=== PATIENT | male | born 1950 | race African-American/Black ===

== ENCOUNTER 2017-10-01 09:00 | Inpatient (IN) ==
[2017-10-03 17:00] VITALS: BP 117/74
== END 2017-10-03 18:59 | disposition home or self-care (01) | DRG 847 ==
LOC: N.4E 09:17
PROVIDERS: ADMIT Specialist; ATTEND Specialist

== ENCOUNTER 2019-09-02 10:36 | Inpatient (IN) ==
[2019-09-02 11:37] LABS: Basophils % 0.5 % (0.0-0.8); Hematocrit 43.4 VOL% (42.0-52.0); Hemoglobin 13.7 GM/DL (14.0-18.0); Immature Granulocytes % 0.7 %; Immature Granulocytes Absolute 0.06 #; Lymphocytes # 1.4 10*3/uL (1.4-4.0); Lymphocytes % 16.9 % (21.2-54.2); Mean Corpuscular HGB Conc 31.6 GM/DL (32-36); Mean Corpuscular Volume 94.3 FL (87-102); Mean Platelet Volume 9.5 FL (9.6-12.0); Monocytes % 12.4 % (1.7-12.7); Neutrophils % 69.5 % (38.7-73.9); Platelet Count 175 T/CUMM (130-400); Red Cell Distribution Width 15.5 % (9.3-17.3); White Blood Count 8.1 T/CUMM (4-12)
[2019-09-02 12:05] LABS: Atypical Lymphocytes Few; Band Neutrophils 8 % (0-10); Hypochromasia 1+; Lymphocytes 21 % (20-55); Segmented Neutrophils 64 % (50-85); Total Cells Counted 100
[2019-09-02 12:06] LABS: Microcytosis Slight; Platelet Estimate Adequate
[2019-09-02 12:10] LABS: Alanine Aminotransferase 35 U/L (16-61); Alkaline Phosphatase 69 U/L (45-117); Aspartate Amino Transferase 43 U/L (0-37); Blood Urea Nitrogen 17 MG/DL (7-18); Calcium 8.2 MG/DL (8.5-10.1); Estimated Glom Filtration Rate 108 ML/MIN; Ferritin 604.1 ng/ml (26-388); Glucose 169 MG/DL (74-106); Osmolality,Calculated 262.1 MOS/KG (273-304); Total Protein 7.4 G/DL (6.4-8.3)
[2019-09-02] MEDS ORDERED: SODIUM CHLORIDE 0.9% 1,000 ML IV STA (12:25)
[2019-09-02] MEDS ORDERED: AZITHROMYCIN 250 MG TABLET PO STA (12:46)
[2019-09-02] MEDS ORDERED: cefTRIAXone 1,000 MG in SODIUM CHLORIDE 0.9% 100 ML IV STA (12:46)
[2019-09-02 13:17] LABS: Apearance,Urine CLEAR (Clear); Bilirubin,Urine Negative (Negative); Blood, Urine Large mg/dL (Negative); Glucose,Urine (UA) Negative (Negative); Hyaline Casts,Urine 3 /LPF (0-3); Ketones,Urine Negative (Negative); Mucus,Urine Occasional /LPF (Occasional); Nitrite,Urine Negative (Negative); Protein,Urine >=500 MG/DL; RBC,Urine 3 /HPF (0-4); Sperm,Urine Occasional /HPF (Negative); Squamous Epithelial Cell,Urine Occasional /HPF (0-10); Urine Specific Gravity 1.028 (1.001-1.035); WBC,Urine 8 /HPF (0-6)
[2019-09-02 13:19] LABS: Urine Color Yellow (Yellow)
[2019-09-02] MEDS ORDERED: hydrALAZINE 20 MG/1 ML VIAL ONE (15:04)
[2019-09-02] MEDS ORDERED: DEXTROSE 10% 250 ML BAG IV PRN (15:18)
[2019-09-02] MEDS ORDERED: GLUCAGON 1 MG VIAL IM PRN (15:18)
[2019-09-02] MEDS: INSULIN LISPRO 100 UNIT/ML SUBCUT SCH ×2 (16:46→21:40)
[2019-09-02] MEDS ORDERED: SODIUM CHLORIDE 0.9% 100 ML IV ONE (16:48)
[2019-09-02] MEDS ORDERED: PIPERACILLIN/TAZOBACTAM 3,375 MG VIAL IV ONE (16:48)
[2019-09-02] MEDS: PIPERACILLIN/TAZOBACTAM 3,375 MG in SODIUM CHLORIDE 0.9% 100 ML IV SCH (16:58)
[2019-09-02] MEDS: ALBUTEROL/IPRATROPIUM 3 ML NEB RESP TX SCH (19:44)
[2019-09-03] MEDS: ALBUTEROL/IPRATROPIUM 3 ML NEB RESP TX SCH ×4 (01:26→19:19)
[2019-09-03] MEDS: PIPERACILLIN/TAZOBACTAM 3,375 MG in SODIUM CHLORIDE 0.9% 100 ML IV SCH ×3 (02:44→18:07)
[2019-09-03 05:18] LABS: Basophils % 0.4 % (0.0-0.8); Hematocrit 40.8 VOL% (42.0-52.0); Hemoglobin 12.7 GM/DL (14.0-18.0); Immature Granulocytes % 0.4 %; Immature Granulocytes Absolute 0.04 #; Lymphocytes # 1.4 10*3/uL (1.4-4.0); Lymphocytes % 15.1 % (21.2-54.2); Mean Corpuscular HGB Conc 31.1 GM/DL (32-36); Mean Corpuscular Volume 94.2 FL (87-102); Mean Platelet Volume 10.6 FL (9.6-12.0); Monocytes % 11.4 % (1.7-12.7); Neutrophils % 72.7 % (38.7-73.9); Platelet Count 177 T/CUMM (130-400); Red Blood Count 4.33 MC/CUMM (3.8-5.5); Red Cell Distribution Width 15.8 % (9.3-17.3); White Blood Count 9.3 T/CUMM (4-12)
[2019-09-03 05:45] LABS: Albumin 2.8 G/DL (3.4-5.0); Bilirubin,Total 0.9 MG/DL (0.2-1.0); Calcium 8.1 MG/DL (8.5-10.1); Osmolality,Calculated 266.7 MOS/KG (273-304); Risk Ratio 7.9; Thyroid Stimulating Hormone 0.886 uIU/ml (0.358-3.74); Total Protein 7.4 G/DL (6.4-8.3); VLDL CHOLESTEROL 49.8 MG/DL
[2019-09-03] MEDS: LEVOTHYROXINE 25 MCG TABLET PO SCH (06:08)
[2019-09-03] MEDS: INSULIN LISPRO 100 UNIT/ML SUBCUT SCH ×4 (07:51→20:31)
[2019-09-03] MEDS ORDERED: ATORVASTATIN 40 MG TABLET PO SCH (09:00)
[2019-09-03] MEDS: POTASSIUM CHLORIDE 20 MEQ TABLET PO PRN ×3 (09:52→13:54)
[2019-09-03] MEDS: amLODIPine 10 MG TABLET PO SCH (09:53)
[2019-09-03] MEDS: PANTOPRAZOLE 40 MG TABLET PO SCH (09:53)
[2019-09-03] MEDS: LISINOPRIL/HCTZ 10-12.5 MG TABLET PO SCH (09:53)
[2019-09-03 15:57] LABS: ABG Base Excess 3.8 MMOL/L (-2.5-2.5); ABG HCO3 27.6 MMOL/L (20-26); ABG Oxygen Saturation 86.3 % (95-100); ABG PH 7.316 (7.35-7.45); ABG PO2 54.7 MM HG (80-95); ABG TCO2 28.6 MMOL/L (23-27)
[2019-09-03] MEDS ORDERED: methylPREDNISolone SOD SUC 40 MG/1 ML VIAL IV ONE (16:04)
[2019-09-03] MEDS: ENOXAPARIN 120 MG/0.8 ML SYRINGE SUBCUT SCH (20:31)
[2019-09-03] MEDS: ATORVASTATIN 40 MG TABLET PO SCH (20:31)
[2019-09-04] MEDS: ALBUTEROL/IPRATROPIUM 3 ML NEB RESP TX SCH ×4 (00:55→19:08)
[2019-09-04] MEDS: PIPERACILLIN/TAZOBACTAM 3,375 MG in SODIUM CHLORIDE 0.9% 100 ML IV SCH ×3 (01:15→18:04)
[2019-09-04 04:18] LABS: Basophils % 0.2 % (0.0-0.8); Hemoglobin 12.6 GM/DL (14.0-18.0); Immature Granulocytes % 0.6 %; Immature Granulocytes Absolute 0.06 #; Lymphocytes # 0.9 10*3/uL (1.4-4.0); Lymphocytes % 9.4 % (21.2-54.2); Mean Corpuscular HGB Conc 29.9 GM/DL (32-36); Mean Corpuscular Volume 98.6 FL (87-102); Mean Platelet Volume 11.6 FL (9.6-12.0); Monocytes % 5.7 % (1.7-12.7); Neutrophils % 84.1 % (38.7-73.9); Platelet Count 174 T/CUMM (130-400); Red Blood Count 4.27 MC/CUMM (3.8-5.5); White Blood Count 9.7 T/CUMM (4-12)
[2019-09-04 04:33] LABS: Hematocrit 41.2 VOL% (42.0-52.0)
[2019-09-04 04:35] LABS: Albumin 2.6 G/DL (3.4-5.0); Bilirubin,Total 0.7 MG/DL (0.2-1.0); Calcium 8.6 MG/DL (8.5-10.1); Osmolality,Calculated 273.5 MOS/KG (273-304)
[2019-09-04] MEDS: LEVOTHYROXINE 25 MCG TABLET PO SCH (05:45)
[2019-09-04] MEDS: INSULIN LISPRO 100 UNIT/ML SUBCUT SCH ×4 (09:26→21:14)
[2019-09-04] MEDS: ENOXAPARIN 120 MG/0.8 ML SYRINGE SUBCUT SCH ×2 (09:26→21:15)
[2019-09-04] MEDS: PANTOPRAZOLE 40 MG TABLET PO SCH (09:26)
[2019-09-04] MEDS: LISINOPRIL/HCTZ 10-12.5 MG TABLET PO SCH (09:26)
[2019-09-04] MEDS: amLODIPine 10 MG TABLET PO SCH (09:26)
[2019-09-04] MEDS ORDERED: FUROSEMIDE 40 MG/4 ML VIAL IV ONE (09:58)
[2019-09-04 10:27] LABS: ABG Base Excess 3.1 MMOL/L (-2.5-2.5); ABG HCO3 32.4 MMOL/L (20-26); ABG Oxygen Saturation 96.7 % (95-100); ABG PH 7.254 (7.35-7.45); ABG PO2 93.6 MM HG (80-95); ABG TCO2 34.8 MMOL/L (23-27)
[2019-09-04 15:30] LABS: ABG Base Excess 3.8 MMOL/L (-2.5-2.5); ABG HCO3 27.7 MMOL/L (20-26); ABG Oxygen Saturation 94.2 % (95-100); ABG PCO2 67.1 MM HG (35-48); ABG PH 7.294 (7.35-7.45); ABG PO2 75.9 MM HG (80-95); ABG TCO2 29.2 MMOL/L (23-27)
[2019-09-04 16:54] LABS: Troponin I 0.118 NG/ML (0.00-0.045)
[2019-09-04 17:18] LABS: Folate 21.2 NG/ML (5.4-24.0)
[2019-09-04] MEDS: ATORVASTATIN 40 MG TABLET PO SCH (21:15)
[2019-09-05] MEDS: PIPERACILLIN/TAZOBACTAM 3,375 MG in SODIUM CHLORIDE 0.9% 100 ML IV SCH ×3 (00:10→17:17)
[2019-09-05] MEDS: ALBUTEROL/IPRATROPIUM 3 ML NEB RESP TX SCH ×4 (00:45→19:36)
[2019-09-05] MEDS: ONDANSETRON 4 MG/2 ML VIAL IV PRN (03:05)
[2019-09-05 04:36] LABS: Basophils % 0.3 % (0.0-0.8); Hematocrit 42.1 VOL% (42.0-52.0); Hemoglobin 12.7 GM/DL (14.0-18.0); Immature Granulocytes % 0.7 %; Immature Granulocytes Absolute 0.08 #; Lymphocytes # 1.3 10*3/uL (1.4-4.0); Lymphocytes % 11.4 % (21.2-54.2); Mean Corpuscular HGB Conc 30.2 GM/DL (32-36); Mean Corpuscular Volume 98.6 FL (87-102); Mean Platelet Volume 11.2 FL (9.6-12.0); Monocytes % 7.4 % (1.7-12.7); NRBC # 0.02 10*3/uL; Neutrophils % 80.2 % (38.7-73.9); Platelet Count 192 T/CUMM (130-400); Red Blood Count 4.27 MC/CUMM (3.8-5.5); Red Cell Distribution Width 15.9 % (9.3-17.3); White Blood Count 11.6 T/CUMM (4-12)
[2019-09-05 05:00] LABS: Albumin 2.8 G/DL (3.4-5.0); Bilirubin,Total 0.7 MG/DL (0.2-1.0); Calcium 9.1 MG/DL (8.5-10.1); Osmolality,Calculated 277.2 MOS/KG (273-304); Total Protein 7.9 G/DL (6.4-8.3)
[2019-09-05] MEDS: LEVOTHYROXINE 25 MCG TABLET PO SCH (05:40)
[2019-09-05] MEDS: INSULIN LISPRO 100 UNIT/ML SUBCUT SCH ×4 (09:26→22:02)
[2019-09-05] MEDS: FOLIC ACID 1 MG TABLET PO SCH (09:49)
[2019-09-05] MEDS: MULTIVITAMIN (CENTRUM) TABLET PO SCH (09:49)
[2019-09-05] MEDS: THIAMINE 100 MG TABLET PO SCH (09:49)
[2019-09-05] MEDS: NEBIVOLOL 5 MG TABLET PO SCH (09:49)
[2019-09-05] MEDS: PANTOPRAZOLE 40 MG TABLET PO SCH (09:49)
[2019-09-05] MEDS: amLODIPine 10 MG TABLET PO SCH (09:49)
[2019-09-05] MEDS: ENOXAPARIN 120 MG/0.8 ML SYRINGE SUBCUT SCH ×2 (09:50→22:02)
[2019-09-05] MEDS: POTASSIUM CHLORIDE 20 MEQ TABLET PO SCH ×2 (09:50→12:29)
[2019-09-05] MEDS: ATORVASTATIN 40 MG TABLET PO SCH (22:03)
[2019-09-06] MEDS: PIPERACILLIN/TAZOBACTAM 3,375 MG in SODIUM CHLORIDE 0.9% 100 ML IV SCH (01:07)
[2019-09-06] MEDS: ALBUTEROL/IPRATROPIUM 3 ML NEB RESP TX SCH ×5 (01:18→23:30)
[2019-09-06 03:19] LABS: ABG Base Excess -2.2 MMOL/L (-2.5-2.5); ABG HCO3 22.5 MMOL/L (20-26); ABG Oxygen Saturation 96.3 % (95-100); ABG PCO2 68.8 MM HG (35-48); ABG PH 7.214 (7.35-7.45); ABG PO2 88.1 MM HG (80-95); ABG TCO2 25.1 MMOL/L (23-27)
[2019-09-06 04:52] LABS: Basophils % 0.2 % (0.0-0.8); Hematocrit 41.4 VOL% (42.0-52.0); Hemoglobin 12.7 GM/DL (14.0-18.0); Immature Granulocytes % 0.9 %; Immature Granulocytes Absolute 0.12 #; Lymphocytes # 0.6 10*3/uL (1.4-4.0); Lymphocytes % 4.5 % (21.2-54.2); Mean Corpuscular HGB Conc 30.7 GM/DL (32-36); Mean Corpuscular Volume 97.9 FL (87-102); Mean Platelet Volume 11.3 FL (9.6-12.0); Neutrophils % 88.4 % (38.7-73.9); Platelet Count 245 T/CUMM (130-400); Red Blood Count 4.23 MC/CUMM (3.8-5.5); Red Cell Distribution Width 16.1 % (9.3-17.3); White Blood Count 12.8 T/CUMM (4-12)
[2019-09-06 05:04] LABS: Calcium 9.2 MG/DL (8.5-10.1); Osmolality,Calculated 290.8 MOS/KG (273-304)
[2019-09-06 05:14] LABS: Band Neutrophils 1 % (0-10); Eosinophils 1 % (0-10); Lymphocytes 6 % (20-55); Platelet Estimate Adequate; Segmented Neutrophils 84 % (50-85); Total Cells Counted 100
[2019-09-06] MEDS: LEVOTHYROXINE 25 MCG TABLET PO SCH (06:44)
[2019-09-06] MEDS ORDERED: RIVAROXABAN 15 MG TABLET PO SCH (08:00)
[2019-09-06] MEDS: INSULIN LISPRO 100 UNIT/ML SUBCUT SCH ×4 (09:17→22:10)
[2019-09-06] MEDS: THIAMINE 100 MG TABLET PO SCH (09:25)
[2019-09-06] MEDS: PANTOPRAZOLE 40 MG TABLET PO SCH (09:26)
[2019-09-06] MEDS: amLODIPine 10 MG TABLET PO SCH (09:26)
[2019-09-06] MEDS: FOLIC ACID 1 MG TABLET PO SCH (09:30)
[2019-09-06] MEDS: NEBIVOLOL 5 MG TABLET PO SCH (09:30)
[2019-09-06] MEDS: MULTIVITAMIN (CENTRUM) TABLET PO SCH (09:30)
[2019-09-06] MEDS ORDERED: SODIUM PHOSPHATE ENEMA 133 ML BOTTLE RECTAL ONE (11:48)
[2019-09-06 14:18] LABS: ABG HCO3 21.9 MMOL/L (20-26); ABG Oxygen Saturation 96.9 % (95-100); ABG PO2 97.2 MM HG (80-95); ABG TCO2 25.1 MMOL/L (23-27)
[2019-09-06 14:22] LABS: ABG PH 7.187 (7.35-7.45)
[2019-09-06 14:23] LABS: ABG PCO2 72.4 MM HG (35-48)
[2019-09-06] MEDS ORDERED: BISACODYL 10 MG SUPP RECTAL ONE (15:00)
[2019-09-06 17:03] LABS: ABG Base Excess -3.2 MMOL/L (-2.5-2.5); ABG HCO3 21.6 MMOL/L (20-26); ABG Oxygen Saturation 92.6 % (95-100); ABG TCO2 25.2 MMOL/L (23-27)
[2019-09-06 17:05] LABS: ABG PCO2 74.2 MM HG (35-48); ABG PH 7.177 (7.35-7.45)
[2019-09-06] MEDS ORDERED: SUCCINYLCHOLINE 200 MG/10 ML VIAL IV ONE (17:45)
[2019-09-06] MEDS ORDERED: ETOMIDATE 20 MG/10 ML VIAL IV ONE ×2 (17:45→17:52)
[2019-09-06] MEDS ORDERED: SUCCINYLCHOLINE 200 MG/10 ML VIAL ONE (17:53)
[2019-09-06] MEDS: SODIUM CHLORIDE 0.9% 1,000 ML IV SCH ×2 (18:04)
[2019-09-06] MEDS: methylPREDNISolone SOD SUC 40 MG/1 ML VIAL IV SCH (18:05)
[2019-09-06] MEDS: cefTRIAXone 1,000 MG in SYRINGE 1 EACH IV SCH (18:09)
[2019-09-06] MEDS: AZITHROMYCIN INJ 500 MG in SODIUM CHLORIDE 0.9% 250 ML IV SCH (18:14)
[2019-09-06 18:33] LABS: Amorphous Crystals,Urine Occasional /HPF (Few); Apearance,Urine CLOUDY (Clear); Bilirubin,Urine Negative (Negative); Blood, Urine Moderate mg/dL (Negative); Glucose,Urine (UA) Negative (Negative); Hyaline Casts,Urine 2 /LPF (0-3); Ketones,Urine Negative (Negative); Mucus,Urine Occasional /LPF (Occasional); Nitrite,Urine Negative (Negative); Protein,Urine 100 MG/DL; RBC,Urine 8 /HPF (0-4); Squamous Epithelial Cell,Urine Occasional /HPF (0-10); Urine Color Amber (Yellow); Urine Urobilinogen < 2.0 EU/DL (0.2-1.0); WBC,Urine <1 /HPF (0-6)
[2019-09-06] MEDS ORDERED: NOREPINEPHRINE 4 MG/4 ML VIAL IV ONE (18:34)
[2019-09-06] MEDS ORDERED: NOREPINEPHRINE 16 MG in SODIUM CHLORIDE 0.9% 234 ML IV PRN (18:35)
[2019-09-06 19:47] LABS: Barbiturates Screen,Urine Negative (Negative); Benzodiazepines Screen,Urine Negative (Negative); Cannabinoid Screen,Urine Negative (Negative); Opiate Screen,Urine Negative (Negative); Phencyclidine Screen,Urine Negative (Negative)
[2019-09-06 20:02] LABS: ABG Base Excess -3.3 MMOL/L (-2.5-2.5); ABG HCO3 21.7 MMOL/L (20-26); ABG Oxygen Saturation 99.9 % (95-100); ABG PCO2 27.1 MM HG (35-48); ABG PH 7.459 (7.35-7.45); ABG TCO2 16.9 MMOL/L (23-27)
[2019-09-06] MEDS: MIDAZOLAM 100 MG in SODIUM CHLORIDE 0.9% 80 ML IV PRN (20:17)
[2019-09-06] MEDS: ATORVASTATIN 40 MG TABLET PO SCH (22:10)
[2019-09-07] MEDS: methylPREDNISolone SOD SUC 40 MG/1 ML VIAL IV SCH ×3 (00:19→16:24)
[2019-09-07] MEDS: MIDAZOLAM 100 MG in SODIUM CHLORIDE 0.9% 80 ML IV PRN ×2 (04:07→19:31)
[2019-09-07] MEDS: ALBUTEROL/IPRATROPIUM 3 ML NEB RESP TX SCH ×6 (04:13→23:56)
[2019-09-07 04:32] LABS: ABG Base Excess -4.1 MMOL/L (-2.5-2.5); ABG HCO3 17.2 MMOL/L (20-26); ABG PCO2 23.5 MM HG (35-48); ABG PH 7.483 (7.35-7.45); ABG PO2 237.2 MM HG (80-95); ABG TCO2 17.9 MMOL/L (23-27); Allen Test Positive; Pt O2 Delivery Device Ventilator
[2019-09-07 04:33] LABS: ABG Oxygen Saturation 99.6 % (95-100)
[2019-09-07] MEDS: SODIUM CHLORIDE 0.9% 1,000 ML IV SCH ×3 (04:58→22:20)
[2019-09-07 05:08] LABS: Basophils % 0.2 % (0.0-0.8); Hemoglobin 11.9 GM/DL (14.0-18.0); Immature Granulocytes % 1.3 %; Immature Granulocytes Absolute 0.16 #; Lymphocytes # 0.5 10*3/uL (1.4-4.0); Lymphocytes % 4.4 % (21.2-54.2); Mean Corpuscular HGB Conc 30.5 GM/DL (32-36); Mean Corpuscular Volume 96.1 FL (87-102); Mean Platelet Volume 10.3 FL (9.6-12.0); Monocytes % 2.6 % (1.7-12.7); NRBC # 0.03 10*3/uL; Neutrophils % 91.5 % (38.7-73.9); Platelet Count 321 T/CUMM (130-400); Red Blood Count 4.06 MC/CUMM (3.8-5.5); Red Cell Distribution Width 15.9 % (9.3-17.3); White Blood Count 12.4 T/CUMM (4-12)
[2019-09-07 05:27] LABS: Calcium 8.9 MG/DL (8.5-10.1); Osmolality,Calculated 300.7 MOS/KG (273-304)
[2019-09-07 06:03] LABS: Band Neutrophils 1 % (0-10); Lymphocytes 4 % (20-55); Metamyelocytes 1 %; Platelet Estimate Normal; Segmented Neutrophils 90 % (50-85); Total Cells Counted 100
[2019-09-07 06:05] LABS: Hypochromasia Slight
[2019-09-07] MEDS: LEVOTHYROXINE 25 MCG TABLET PO SCH (06:29)
[2019-09-07] MEDS: BUDESONIDE 0.5 MG/2 ML NEB RESP TX SCH ×2 (06:55→19:31)
[2019-09-07] MEDS: INSULIN LISPRO 100 UNIT/ML SUBCUT SCH (07:46)
[2019-09-07] MEDS: NEBIVOLOL 5 MG TABLET PO SCH (08:59)
[2019-09-07] MEDS: amLODIPine 10 MG TABLET PO SCH (08:59)
[2019-09-07] MEDS: MULTIVITAMIN LIQUID (CENTRUM) 60 ML BOTTLE PO SCH (10:09)
[2019-09-07] MEDS: FOLIC ACID 1 MG TABLET PO SCH (10:09)
[2019-09-07] MEDS: OMEPRAZOLE ODT 20 MG TABLET PO SCH (10:10)
[2019-09-07] MEDS: THIAMINE 100 MG TABLET PO SCH (10:10)
[2019-09-07 11:38] LABS: ABG Base Excess -4.4 MMOL/L (-2.5-2.5); ABG HCO3 20.8 MMOL/L (20-26); ABG Oxygen Saturation 98.8 % (95-100); ABG PCO2 32.1 MM HG (35-48); ABG PH 7.393 (7.35-7.45); ABG TCO2 17.4 MMOL/L (23-27); Pt O2 Delivery Device Ventilator
[2019-09-07] MEDS: INSULIN REGULAR 100 UNIT/ML SUBCUT SCH ×2 (12:29→18:28)
[2019-09-07] MEDS: cefTRIAXone 1,000 MG in SYRINGE 1 EACH IV SCH (16:35)
[2019-09-07] MEDS: AZITHROMYCIN INJ 500 MG in SODIUM CHLORIDE 0.9% 250 ML IV SCH (16:40)
[2019-09-07] MEDS: ATORVASTATIN 40 MG TABLET PO SCH (20:28)
[2019-09-08] MEDS: INSULIN REGULAR 100 UNIT/ML SUBCUT SCH ×4 (00:28→23:37)
[2019-09-08] MEDS: methylPREDNISolone SOD SUC 40 MG/1 ML VIAL IV SCH ×3 (01:22→16:33)
[2019-09-08 03:05] LABS: Allen Test Positive; Pt O2 Delivery Device Ventilator
[2019-09-08 03:08] LABS: ABG Base Excess -3.8 MMOL/L (-2.5-2.5); ABG HCO3 21.3 MMOL/L (20-26); ABG Oxygen Saturation 99.2 % (95-100); ABG PCO2 33.8 MM HG (35-48); ABG PH 7.389 (7.35-7.45); ABG TCO2 18.2 MMOL/L (23-27)
[2019-09-08] MEDS: ALBUTEROL/IPRATROPIUM 3 ML NEB RESP TX SCH ×5 (04:00→20:08)
[2019-09-08 05:15] LABS: Basophils % 0.1 % (0.0-0.8); Hematocrit 36.6 VOL% (42.0-52.0); Hemoglobin 11.5 GM/DL (14.0-18.0); Immature Granulocytes % 0.8 %; Immature Granulocytes Absolute 0.12 #; Lymphocytes # 0.4 10*3/uL (1.4-4.0); Lymphocytes % 2.9 % (21.2-54.2); Mean Corpuscular HGB Conc 31.4 GM/DL (32-36); Mean Corpuscular Volume 94.1 FL (87-102); Mean Platelet Volume 9.9 FL (9.6-12.0); Neutrophils % 92.2 % (38.7-73.9); Platelet Count 342 T/CUMM (130-400); Red Blood Count 3.89 MC/CUMM (3.8-5.5); Red Cell Distribution Width 15.8 % (9.3-17.3); White Blood Count 14.6 T/CUMM (4-12)
[2019-09-08] MEDS: MIDAZOLAM 100 MG in SODIUM CHLORIDE 0.9% 80 ML IV PRN (05:31)
[2019-09-08 05:33] LABS: Albumin 2.4 G/DL (3.4-5.0); Bilirubin,Total 0.9 MG/DL (0.2-1.0); Calcium 8.6 MG/DL (8.5-10.1); Osmolality,Calculated 313.4 MOS/KG (273-304); Total Protein 7.1 G/DL (6.4-8.3)
[2019-09-08] MEDS: LEVOTHYROXINE 25 MCG TABLET PO SCH (05:49)
[2019-09-08 06:58] LABS: Band Neutrophils 5 % (0-10); Hypochromasia 1+; Lymphocytes 2 % (20-55); Microcytosis 1+; Segmented Neutrophils 90 % (50-85); Total Cells Counted 100
[2019-09-08 06:59] LABS: Platelet Estimate Normal
[2019-09-08] MEDS: BUDESONIDE 0.5 MG/2 ML NEB RESP TX SCH ×2 (07:29→20:08)
[2019-09-08] MEDS: OMEPRAZOLE ODT 20 MG TABLET PO SCH (08:17)
[2019-09-08] MEDS: FOLIC ACID 1 MG TABLET PO SCH (08:22)
[2019-09-08] MEDS: THIAMINE 100 MG TABLET PO SCH (08:22)
[2019-09-08] MEDS: MULTIVITAMIN LIQUID (CENTRUM) 60 ML BOTTLE PO SCH (08:23)
[2019-09-08] MEDS: HEPARIN DRIP 25,000 UNITS/500 ML PREMIX IV SCH ×2 (09:30→21:53)
[2019-09-08 10:12] LABS: INR 1.2; PT Patient Result 12.4 SECS (9.8-11.9); Partial Thromboplastin Time 23.5 SECS (23.9-33.8)
[2019-09-08] MEDS: SODIUM CHLORIDE 0.9% 1,000 ML IV SCH ×2 (10:20→12:11)
[2019-09-08] MEDS: cefTRIAXone 1,000 MG in SYRINGE 1 EACH IV SCH (16:29)
[2019-09-08] MEDS: AZITHROMYCIN INJ 500 MG in SODIUM CHLORIDE 0.9% 250 ML IV SCH (16:40)
[2019-09-08 18:15] LABS: INR 1.3; PT Patient Result 13.6 SECS (9.8-11.9)
[2019-09-08 18:20] LABS: Partial Thromboplastin Time 83.1 SECS (23.9-33.8)
[2019-09-08] MEDS: ATORVASTATIN 40 MG TABLET PO SCH (20:57)
[2019-09-09] MEDS: INSULIN REGULAR 100 UNIT/ML SUBCUT SCH ×4 (00:11→18:44)
[2019-09-09] MEDS: methylPREDNISolone SOD SUC 40 MG/1 ML VIAL IV SCH ×3 (00:12→17:20)
[2019-09-09] MEDS: ALBUTEROL/IPRATROPIUM 3 ML NEB RESP TX SCH ×6 (00:52→18:53)
[2019-09-09] MEDS: SODIUM CHLORIDE 0.9% 1,000 ML IV SCH ×2 (02:18→23:28)
[2019-09-09] MEDS: MIDAZOLAM 100 MG in SODIUM CHLORIDE 0.9% 80 ML IV PRN ×2 (03:41→16:39)
[2019-09-09 04:34] LABS: Basophils % 0.1 % (0.0-0.8); Hematocrit 35.8 VOL% (42.0-52.0); Hemoglobin 11.3 GM/DL (14.0-18.0); Immature Granulocytes % 1.8 %; Immature Granulocytes Absolute 0.26 #; Lymphocytes # 0.4 10*3/uL (1.4-4.0); Lymphocytes % 2.7 % (21.2-54.2); Mean Corpuscular HGB Conc 31.6 GM/DL (32-36); Mean Corpuscular Volume 92.5 FL (87-102); Mean Platelet Volume 9.9 FL (9.6-12.0); Monocytes % 5.1 % (1.7-12.7); NRBC # 0.03 10*3/uL; Neutrophils % 90.3 % (38.7-73.9); Platelet Count 330 T/CUMM (130-400); Red Blood Count 3.87 MC/CUMM (3.8-5.5); Red Cell Distribution Width 16.1 % (9.3-17.3); White Blood Count 14.3 T/CUMM (4-12)
[2019-09-09 04:38] LABS: ABG Base Excess -6.8 MMOL/L (-2.5-2.5); ABG HCO3 18.9 MMOL/L (20-26); ABG Oxygen Saturation 97.7 % (95-100); ABG PCO2 35.2 MM HG (35-48); ABG PH 7.328 (7.35-7.45); ABG TCO2 16.7 MMOL/L (23-27)
[2019-09-09 05:05] LABS: Albumin 2.3 G/DL (3.4-5.0); Bilirubin,Total 0.6 MG/DL (0.2-1.0); Calcium 8.7 MG/DL (8.5-10.1); Osmolality,Calculated 324.4 MOS/KG (273-304); Total Protein 6.7 G/DL (6.4-8.3)
[2019-09-09 05:16] LABS: Band Neutrophils 1 % (0-10); Hypochromasia 1+; Lymphocytes 3 % (20-55); Microcytosis 1+; Nucleated Red Blood Cells 1 (0-5); Segmented Neutrophils 89 % (50-85); Total Cells Counted 100
[2019-09-09 05:17] LABS: Platelet Estimate Normal
[2019-09-09] MEDS: LEVOTHYROXINE 25 MCG TABLET PO SCH (06:15)
[2019-09-09] MEDS: BUDESONIDE 0.5 MG/2 ML NEB RESP TX SCH ×2 (07:25→18:53)
[2019-09-09 12:19] LABS: Hepatitis B Core IgM Quant 0.57 Index; Hepatitis B Surface Ag Quant < 0.10 Index; Hepatitis B Surface Ag Result Negative (Negative); Hepatitis C Virus Ab Quant 0.11 Index; Hepatitis C Virus Ab Result Negative (Negative)
[2019-09-09] MEDS: HEPARIN DRIP 25,000 UNITS/500 ML PREMIX IV SCH (13:28)
[2019-09-09] MEDS: THIAMINE 100 MG TABLET PO SCH (13:34)
[2019-09-09] MEDS: MULTIVITAMIN LIQUID (CENTRUM) 60 ML BOTTLE PO SCH (13:35)
[2019-09-09] MEDS: FOLIC ACID 1 MG TABLET PO SCH (13:35)
[2019-09-09] MEDS: OMEPRAZOLE ODT 20 MG TABLET PO SCH (13:35)
[2019-09-09] MEDS: cefTRIAXone 1,000 MG in SYRINGE 1 EACH IV SCH (17:37)
[2019-09-09] MEDS: AZITHROMYCIN INJ 500 MG in SODIUM CHLORIDE 0.9% 250 ML IV SCH (17:45)
[2019-09-09] MEDS: ATORVASTATIN 40 MG TABLET PO SCH (20:54)
[2019-09-09] MEDS: INSULIN GLARGINE 100 UNIT/ML SUBCUT SCH (20:54)
[2019-09-10] MEDS: ALBUTEROL/IPRATROPIUM 3 ML NEB RESP TX SCH ×7 (00:40→23:21)
[2019-09-10] MEDS: INSULIN REGULAR 100 UNIT/ML SUBCUT SCH ×4 (00:48→17:27)
[2019-09-10] MEDS: methylPREDNISolone SOD SUC 40 MG/1 ML VIAL IV SCH ×3 (00:48→17:55)
[2019-09-10] MEDS: HEPARIN DRIP 25,000 UNITS/500 ML PREMIX IV SCH ×3 (02:14→21:27)
[2019-09-10 03:49] LABS: Basophils % 0.2 % (0.0-0.8); Hematocrit 33.8 VOL% (42.0-52.0); Hemoglobin 10.7 GM/DL (14.0-18.0); Immature Granulocytes % 5.3 %; Immature Granulocytes Absolute 0.71 #; Lymphocytes # 0.3 10*3/uL (1.4-4.0); Lymphocytes % 1.9 % (21.2-54.2); Mean Corpuscular HGB Conc 31.7 GM/DL (32-36); Mean Corpuscular Volume 93.4 FL (87-102); Mean Platelet Volume 9.8 FL (9.6-12.0); Monocytes % 6.4 % (1.7-12.7); NRBC # 0.03 10*3/uL; Neutrophils % 86.2 % (38.7-73.9); Platelet Count 236 T/CUMM (130-400); Red Blood Count 3.62 MC/CUMM (3.8-5.5); White Blood Count 13.3 T/CUMM (4-12)
[2019-09-10 04:14] LABS: Alanine Aminotransferase 58 U/L (16-61); Albumin 2.1 G/DL (3.4-5.0); Alkaline Phosphatase 41 U/L (45-117); Aspartate Amino Transferase 43 U/L (0-37); Bilirubin,Total < 0.39 MG/DL (0.2-1.0); Blood Urea Nitrogen 99 MG/DL (7-18); Calcium 8.2 MG/DL (8.5-10.1); Estimated Glom Filtration Rate 10 ML/MIN; Glucose 276 MG/DL (74-106); Osmolality,Calculated 321.3 MOS/KG (273-304); Total Protein 6.1 G/DL (6.4-8.3)
[2019-09-10 04:43] LABS: ABG Base Excess -5.7 MMOL/L (-2.5-2.5); ABG HCO3 19.7 MMOL/L (20-26); ABG Oxygen Saturation 97.4 % (95-100); ABG PCO2 45.2 MM HG (35-48); ABG PH 7.278 (7.35-7.45); Allen Test Positive; Pt O2 Delivery Device Ventilator
[2019-09-10 05:02] LABS: Anisocytosis 1+; Lymphocytes 1 % (20-55); Nucleated Red Blood Cells 1 (0-5); Platelet Estimate Normal; Segmented Neutrophils 94 % (50-85); Total Cells Counted 100
[2019-09-10] MEDS: SODIUM CHLORIDE 0.9% 1,000 ML IV SCH (05:07)
[2019-09-10] MEDS: MIDAZOLAM 100 MG in SODIUM CHLORIDE 0.9% 80 ML IV PRN ×3 (05:11→22:03)
[2019-09-10] MEDS: LEVOTHYROXINE 25 MCG TABLET PO SCH (06:08)
[2019-09-10] MEDS: BUDESONIDE 0.5 MG/2 ML NEB RESP TX SCH ×2 (07:10→19:18)
[2019-09-10] MEDS: THIAMINE 100 MG TABLET PO SCH (08:45)
[2019-09-10] MEDS: FOLIC ACID 1 MG TABLET PO SCH (08:45)
[2019-09-10] MEDS: MULTIVITAMIN LIQUID (CENTRUM) 60 ML BOTTLE PO SCH (08:45)
[2019-09-10] MEDS: OMEPRAZOLE ODT 20 MG TABLET PO SCH (08:45)
[2019-09-10] MEDS ORDERED: HEPARIN 10,000 UNIT/10 ML VIAL IV SCH (16:00)
[2019-09-10] MEDS: cefTRIAXone 1,000 MG in SYRINGE 1 EACH IV SCH (17:55)
[2019-09-10] MEDS: AZITHROMYCIN INJ 500 MG in SODIUM CHLORIDE 0.9% 250 ML IV SCH (18:00)
[2019-09-10] MEDS: INSULIN GLARGINE 100 UNIT/ML SUBCUT SCH (21:28)
[2019-09-11] MEDS: INSULIN REGULAR 100 UNIT/ML SUBCUT SCH ×4 (00:14→17:30)
[2019-09-11] MEDS: methylPREDNISolone SOD SUC 40 MG/1 ML VIAL IV SCH ×3 (00:14→16:10)
[2019-09-11 03:26] LABS: ABG Base Excess -1.6 MMOL/L (-2.5-2.5); ABG HCO3 23.1 MMOL/L (20-26); ABG Oxygen Saturation 97.9 % (95-100); ABG PCO2 36.3 MM HG (35-48); ABG PH 7.404 (7.35-7.45); ABG TCO2 20.2 MMOL/L (23-27)
[2019-09-11 04:06] LABS: Basophils # 0.1 10*3/uL (0.0-0.2); Basophils % 0.3 % (0.0-0.8); Hematocrit 35.6 VOL% (42.0-52.0); Hemoglobin 11.4 GM/DL (14.0-18.0); Immature Granulocytes % 8.2 %; Immature Granulocytes Absolute 1.24 #; Lymphocytes # 0.5 10*3/uL (1.4-4.0); Mean Corpuscular Volume 90.6 FL (87-102); Mean Platelet Volume 9.5 FL (9.6-12.0); Monocytes % 6.7 % (1.7-12.7); NRBC # 0.08 10*3/uL; Neutrophils % 81.8 % (38.7-73.9); Platelet Count 177 T/CUMM (130-400); Red Blood Count 3.93 MC/CUMM (3.8-5.5); Red Cell Distribution Width 15.8 % (9.3-17.3); White Blood Count 15.2 T/CUMM (4-12)
[2019-09-11] MEDS: ALBUTEROL/IPRATROPIUM 3 ML NEB RESP TX SCH ×6 (04:20→23:04)
[2019-09-11 04:35] LABS: Albumin 2.2 G/DL (3.4-5.0); Bilirubin,Total 1.3 MG/DL (0.2-1.0); Calcium 8.5 MG/DL (8.5-10.1); Osmolality,Calculated 307.7 MOS/KG (273-304); Total Protein 6.4 G/DL (6.4-8.3)
[2019-09-11 05:40] LABS: Hypochromasia 1+; Lymphocytes 3 % (20-55); Metamyelocytes 1 %; Myelocytes 1 %; Segmented Neutrophils 87 % (50-85); Total Cells Counted 100
[2019-09-11 05:41] LABS: Microcytosis 1+
[2019-09-11] MEDS: LEVOTHYROXINE 25 MCG TABLET PO SCH (06:05)
[2019-09-11] MEDS: MIDAZOLAM 100 MG in SODIUM CHLORIDE 0.9% 80 ML IV PRN ×2 (06:30→16:30)
[2019-09-11] MEDS: BUDESONIDE 0.5 MG/2 ML NEB RESP TX SCH ×2 (07:50→19:19)
[2019-09-11] MEDS: FOLIC ACID 1 MG TABLET PO SCH (08:15)
[2019-09-11] MEDS: OMEPRAZOLE ODT 20 MG TABLET PO SCH (08:15)
[2019-09-11] MEDS: MULTIVITAMIN LIQUID (CENTRUM) 60 ML BOTTLE PO SCH (08:15)
[2019-09-11] MEDS: THIAMINE 100 MG TABLET PO SCH (08:15)
[2019-09-11] MEDS: HEPARIN DRIP 25,000 UNITS/500 ML PREMIX IV SCH ×2 (09:00→22:00)
[2019-09-11] MEDS: METOCLOPRAMIDE 10 MG/2 ML VIAL IV SCH ×2 (11:40→17:40)
[2019-09-11] MEDS: cefTRIAXone 1,000 MG in SYRINGE 1 EACH IV SCH (16:15)
[2019-09-11] MEDS: INSULIN GLARGINE 100 UNIT/ML SUBCUT SCH (20:10)
[2019-09-12] MEDS: INSULIN REGULAR 100 UNIT/ML SUBCUT SCH ×4 (00:55→18:39)
[2019-09-12] MEDS: methylPREDNISolone SOD SUC 40 MG/1 ML VIAL IV SCH ×3 (00:55→15:53)
[2019-09-12] MEDS: METOCLOPRAMIDE 10 MG/2 ML VIAL IV SCH ×4 (00:55→18:39)
[2019-09-12 02:24] LABS: ABG Base Excess -2.1 MMOL/L (-2.5-2.5); ABG HCO3 22.6 MMOL/L (20-26); ABG Oxygen Saturation 96.8 % (95-100); ABG PCO2 38.1 MM HG (35-48); ABG PH 7.382 (7.35-7.45); ABG PO2 91.2 MM HG (80-95); ABG TCO2 20.3 MMOL/L (23-27); Allen Test Positive; Pt O2 Delivery Device Ventilator
[2019-09-12 04:14] LABS: Basophils % 0.3 % (0.0-0.8); Hemoglobin 10.6 GM/DL (14.0-18.0); Immature Granulocytes % 8.5 %; Immature Granulocytes Absolute 1.21 #; Lymphocytes # 0.4 10*3/uL (1.4-4.0); Lymphocytes % 2.7 % (21.2-54.2); Mean Corpuscular HGB Conc 31.2 GM/DL (32-36); Mean Corpuscular Volume 94.4 FL (87-102); Mean Platelet Volume 10.1 FL (9.6-12.0); Monocytes % 7.4 % (1.7-12.7); NRBC # 0.09 10*3/uL; Neutrophils % 81.1 % (38.7-73.9); Platelet Count 194 T/CUMM (130-400); Red Cell Distribution Width 15.9 % (9.3-17.3); White Blood Count 14.3 T/CUMM (4-12)
[2019-09-12] MEDS: ALBUTEROL/IPRATROPIUM 3 ML NEB RESP TX SCH ×6 (04:19→23:49)
[2019-09-12 04:24] LABS: Calcium 8.1 MG/DL (8.5-10.1); Osmolality,Calculated 318.4 MOS/KG (273-304)
[2019-09-12] MEDS: LEVOTHYROXINE 25 MCG TABLET PO SCH (06:10)
[2019-09-12] MEDS: MIDAZOLAM 100 MG in SODIUM CHLORIDE 0.9% 80 ML IV PRN (06:11)
[2019-09-12 07:38] LABS: Lymphocytes 3 % (20-55); Metamyelocytes 1 %; Platelet Estimate Normal; Segmented Neutrophils 86 % (50-85); Total Cells Counted 100
[2019-09-12] MEDS: BUDESONIDE 0.5 MG/2 ML NEB RESP TX SCH ×2 (07:44→19:00)
[2019-09-12] MEDS: FOLIC ACID 1 MG TABLET PO SCH (08:17)
[2019-09-12] MEDS: OMEPRAZOLE ODT 20 MG TABLET PO SCH (08:17)
[2019-09-12] MEDS: THIAMINE 100 MG TABLET PO SCH (08:18)
[2019-09-12] MEDS: MULTIVITAMIN LIQUID (CENTRUM) 60 ML BOTTLE PO SCH (08:48)
[2019-09-12] MEDS: cefTRIAXone 1,000 MG in SYRINGE 1 EACH IV SCH (15:54)
[2019-09-12] MEDS: INSULIN GLARGINE 100 UNIT/ML SUBCUT SCH (22:25)
[2019-09-12] MEDS: HEPARIN DRIP 25,000 UNITS/500 ML PREMIX IV SCH (22:28)
[2019-09-13] MEDS: METOCLOPRAMIDE 10 MG/2 ML VIAL IV SCH ×4 (00:40→19:00)
[2019-09-13] MEDS: INSULIN REGULAR 100 UNIT/ML SUBCUT SCH ×3 (00:40→12:30)
[2019-09-13] MEDS: methylPREDNISolone SOD SUC 40 MG/1 ML VIAL IV SCH ×3 (00:40→21:15)
[2019-09-13] MEDS: ALBUTEROL/IPRATROPIUM 3 ML NEB RESP TX SCH ×6 (03:03→23:02)
[2019-09-13] MEDS: MIDAZOLAM 100 MG in SODIUM CHLORIDE 0.9% 80 ML IV PRN (04:14)
[2019-09-13 04:24] LABS: Calcium 8.1 MG/DL (8.5-10.1); Osmolality,Calculated 314.5 MOS/KG (273-304)
[2019-09-13 04:42] LABS: ABG HCO3 22.6 MMOL/L (20-26); ABG Oxygen Saturation 96.9 % (95-100); ABG PCO2 38.2 MM HG (35-48); ABG PO2 99.2 MM HG (80-95); ABG TCO2 23.8 MMOL/L (23-27); Allen Test Positive; Pt O2 Delivery Device Ventilator
[2019-09-13] MEDS: LEVOTHYROXINE 25 MCG TABLET PO SCH (05:57)
[2019-09-13] MEDS: BUDESONIDE 0.5 MG/2 ML NEB RESP TX SCH ×2 (07:05→19:28)
[2019-09-13] MEDS: FOLIC ACID 1 MG TABLET PO SCH (08:13)
[2019-09-13] MEDS: THIAMINE 100 MG TABLET PO SCH (08:14)
[2019-09-13] MEDS: MULTIVITAMIN LIQUID (CENTRUM) 60 ML BOTTLE PO SCH (08:14)
[2019-09-13] MEDS: OMEPRAZOLE ODT 20 MG TABLET PO SCH (08:14)
[2019-09-13] MEDS: DEXMEDETOMIDINE 400 MCG in SODIUM CHLORIDE 0.9% 96 ML IV PRN (11:42)
[2019-09-13] MEDS: cefTRIAXone 1,000 MG in SYRINGE 1 EACH IV SCH (15:39)
[2019-09-13] MEDS: INSULIN GLARGINE 100 UNIT/ML SUBCUT SCH (21:15)
[2019-09-13] MEDS: HEPARIN DRIP 25,000 UNITS/500 ML PREMIX IV SCH (21:16)
[2019-09-14] MEDS: INSULIN REGULAR 100 UNIT/ML SUBCUT SCH ×6 (00:05→23:53)
[2019-09-14] MEDS: METOCLOPRAMIDE 10 MG/2 ML VIAL IV SCH ×5 (00:13→23:52)
[2019-09-14] MEDS: HEPARIN DRIP 25,000 UNITS/500 ML PREMIX IV SCH ×2 (00:14→22:24)
[2019-09-14] MEDS: ALBUTEROL/IPRATROPIUM 3 ML NEB RESP TX SCH ×6 (02:59→23:10)
[2019-09-14 04:23] LABS: Basophils % 0.2 % (0.0-0.8); Hematocrit 31.2 VOL% (42.0-52.0); Hemoglobin 9.8 GM/DL (14.0-18.0); Immature Granulocytes % 5.7 %; Immature Granulocytes Absolute 1.02 #; Lymphocytes # 0.5 10*3/uL (1.4-4.0); Lymphocytes % 2.6 % (21.2-54.2); Mean Corpuscular HGB Conc 31.4 GM/DL (32-36); Mean Platelet Volume 11.4 FL (9.6-12.0); Monocytes % 5.8 % (1.7-12.7); NRBC # 0.06 10*3/uL; Neutrophils % 85.7 % (38.7-73.9); Platelet Count 165 T/CUMM (130-400); Red Blood Count 3.25 MC/CUMM (3.8-5.5); Red Cell Distribution Width 16.2 % (9.3-17.3)
[2019-09-14 04:39] LABS: Alanine Aminotransferase 39 U/L (16-61); Albumin 2.2 G/DL (3.4-5.0); Alkaline Phosphatase 42 U/L (45-117); Aspartate Amino Transferase 30 U/L (0-37); Bilirubin,Total < 0.39 MG/DL (0.2-1.0); Blood Urea Nitrogen 129 MG/DL (7-18); Calcium 8.3 MG/DL (8.5-10.1); Estimated Glom Filtration Rate 11 ML/MIN; Glucose 240 MG/DL (74-106); Osmolality,Calculated 328.4 MOS/KG (273-304); Total Protein 5.9 G/DL (6.4-8.3)
[2019-09-14 04:51] LABS: ABG Base Excess -2.6 MMOL/L (-2.5-2.5); ABG HCO3 22.2 MMOL/L (20-26); ABG Oxygen Saturation 96.9 % (95-100); ABG PCO2 40.4 MM HG (35-48); ABG PH 7.357 (7.35-7.45); ABG TCO2 19.9 MMOL/L (23-27); Allen Test Positive; Pt O2 Delivery Device Ventilator
[2019-09-14 05:58] LABS: Anisocytosis 1+; Band Neutrophils 2 % (0-10); Lymphocytes 6 % (20-55); Metamyelocytes 1 %; Myelocytes 1 %; Platelet Estimate Normal; Poikilocytosis Slight; Segmented Neutrophils 82 % (50-85); Total Cells Counted 100
[2019-09-14] MEDS: LEVOTHYROXINE 25 MCG TABLET PO SCH (06:19)
[2019-09-14] MEDS: BUDESONIDE 0.5 MG/2 ML NEB RESP TX SCH ×2 (07:31→19:06)
[2019-09-14] MEDS: methylPREDNISolone SOD SUC 40 MG/1 ML VIAL IV SCH ×2 (08:15→20:39)
[2019-09-14] MEDS: MULTIVITAMIN LIQUID (CENTRUM) 60 ML BOTTLE PO SCH (09:10)
[2019-09-14] MEDS: FOLIC ACID 1 MG TABLET PO SCH (09:14)
[2019-09-14] MEDS: THIAMINE 100 MG TABLET PO SCH (09:15)
[2019-09-14] MEDS: OMEPRAZOLE ODT 20 MG TABLET PO SCH (09:15)
[2019-09-14 12:05] LABS: ABG HCO3 22.7 MMOL/L (20-26); ABG Oxygen Saturation 95.4 % (95-100); ABG PCO2 48.1 MM HG (35-48); ABG PH 7.315 (7.35-7.45); ABG PO2 84.6 MM HG (80-95); ABG TCO2 22.4 MMOL/L (23-27); Allen Test Positive; Pt O2 Delivery Device Ventilator
[2019-09-14] MEDS: INSULIN GLARGINE 100 UNIT/ML SUBCUT SCH (20:39)
[2019-09-15] MEDS: ALBUTEROL/IPRATROPIUM 3 ML NEB RESP TX SCH ×5 (03:07→19:34)
[2019-09-15 03:49] LABS: Basophils # 0.1 10*3/uL (0.0-0.2); Basophils % 0.3 % (0.0-0.8); Hematocrit 27.3 VOL% (42.0-52.0); Hemoglobin 8.8 GM/DL (14.0-18.0); Immature Granulocytes % 5.8 %; Immature Granulocytes Absolute 1.22 #; Lymphocytes # 0.5 10*3/uL (1.4-4.0); Lymphocytes % 2.2 % (21.2-54.2); Mean Corpuscular HGB Conc 32.2 GM/DL (32-36); Mean Corpuscular Volume 94.8 FL (87-102); Monocytes % 5.6 % (1.7-12.7); NRBC # 0.08 10*3/uL; Neutrophils % 86.1 % (38.7-73.9); Platelet Count 190 T/CUMM (130-400); Red Blood Count 2.88 MC/CUMM (3.8-5.5); Red Cell Distribution Width 16.8 % (9.3-17.3); White Blood Count 21.2 T/CUMM (4-12)
[2019-09-15 04:09] LABS: Albumin 2.2 G/DL (3.4-5.0); Bilirubin,Total 0.5 MG/DL (0.2-1.0); Calcium 8.4 MG/DL (8.5-10.1); Osmolality,Calculated 335.3 MOS/KG (273-304)
[2019-09-15 04:19] LABS: Band Neutrophils 1 % (0-10); Hypochromasia 1+; Lymphocytes 3 % (20-55); Myelocytes 1 %; Nucleated Red Blood Cells 2 (0-5); Platelet Estimate Adequate; Segmented Neutrophils 88 % (50-85); Total Cells Counted 100
[2019-09-15 04:24] LABS: ABG Base Excess -2.1 MMOL/L (-2.5-2.5); ABG HCO3 22.7 MMOL/L (20-26); ABG Oxygen Saturation 98.8 % (95-100); ABG PCO2 44.8 MM HG (35-48); ABG PH 7.334 (7.35-7.45); ABG TCO2 22.1 MMOL/L (23-27); Allen Test Positive; Pt O2 Delivery Device Ventilator
[2019-09-15] MEDS: LEVOTHYROXINE 25 MCG TABLET PO SCH (05:42)
[2019-09-15] MEDS: METOCLOPRAMIDE 10 MG/2 ML VIAL IV SCH ×3 (05:42→20:24)
[2019-09-15] MEDS: INSULIN REGULAR 100 UNIT/ML SUBCUT SCH (06:25)
[2019-09-15] MEDS: BUDESONIDE 0.5 MG/2 ML NEB RESP TX SCH ×2 (07:28→19:34)
[2019-09-15] MEDS: MULTIVITAMIN LIQUID (CENTRUM) 60 ML BOTTLE PO SCH (09:45)
[2019-09-15] MEDS: methylPREDNISolone SOD SUC 40 MG/1 ML VIAL IV SCH ×2 (09:45→22:25)
[2019-09-15] MEDS: OMEPRAZOLE ODT 20 MG TABLET PO SCH (09:45)
[2019-09-15] MEDS: FOLIC ACID 1 MG TABLET PO SCH (09:45)
[2019-09-15] MEDS: THIAMINE 100 MG TABLET PO SCH (09:46)
[2019-09-15] MEDS: DEXMEDETOMIDINE 400 MCG in SODIUM CHLORIDE 0.9% 96 ML IV PRN (10:40)
[2019-09-15] MEDS: INSULIN LISPRO 100 UNIT/ML SUBCUT SCH ×2 (13:24→20:24)
[2019-09-15] MEDS: HEPARIN DRIP 25,000 UNITS/500 ML PREMIX IV SCH (19:28)
[2019-09-15] MEDS: INSULIN GLARGINE 100 UNIT/ML SUBCUT SCH (23:05)
[2019-09-16] MEDS: ALBUTEROL/IPRATROPIUM 3 ML NEB RESP TX SCH ×7 (01:28→23:48)
[2019-09-16] MEDS: METOCLOPRAMIDE 10 MG/2 ML VIAL IV SCH ×4 (03:19→18:01)
[2019-09-16] MEDS: INSULIN LISPRO 100 UNIT/ML SUBCUT SCH ×4 (03:30→18:01)
[2019-09-16 04:27] LABS: Basophils % 0.1 % (0.0-0.8); Hematocrit 22.1 VOL% (42.0-52.0); Hemoglobin 6.8 GM/DL (14.0-18.0); Immature Granulocytes % 5.3 %; Immature Granulocytes Absolute 1.19 #; Lymphocytes # 0.6 10*3/uL (1.4-4.0); Lymphocytes % 2.7 % (21.2-54.2); Mean Corpuscular HGB Conc 30.8 GM/DL (32-36); Mean Corpuscular Volume 97.4 FL (87-102); Mean Platelet Volume 11.5 FL (9.6-12.0); Monocytes % 5.1 % (1.7-12.7); NRBC # 0.05 10*3/uL; Neutrophils % 86.8 % (38.7-73.9); Platelet Count 60 T/CUMM (130-400); Red Blood Count 2.27 MC/CUMM (3.8-5.5); Red Cell Distribution Width 16.6 % (9.3-17.3); White Blood Count 22.4 T/CUMM (4-12)
[2019-09-16 04:43] LABS: Alanine Aminotransferase 30 U/L (16-61); Albumin 1.9 G/DL (3.4-5.0); Alkaline Phosphatase 34 U/L (45-117); Aspartate Amino Transferase 23 U/L (0-37); Bilirubin,Total < 0.39 MG/DL (0.2-1.0); Blood Urea Nitrogen 147 MG/DL (7-18); Calcium 8.1 MG/DL (8.5-10.1); Estimated Glom Filtration Rate 14 ML/MIN; Glucose 216 MG/DL (74-106); Osmolality,Calculated 335.3 MOS/KG (273-304); Total Protein 5.2 G/DL (6.4-8.3)
[2019-09-16 04:48] LABS: Band Neutrophils 2 % (0-10); Lymphocytes 5 % (20-55); Segmented Neutrophils 88 % (50-85); Total Cells Counted 100
[2019-09-16 04:49] LABS: Hypochromasia 2+; Platelet Estimate Decreased
[2019-09-16 05:00] LABS: ABG Base Excess -1.2 MMOL/L (-2.5-2.5); ABG Oxygen Saturation 98.1 % (95-100); ABG PCO2 42.5 MM HG (35-48); ABG PH 7.369 (7.35-7.45); ABG PO2 129.8 MM HG (80-95); ABG TCO2 25.3 MMOL/L (23-27); Allen Test Positive; Pt O2 Delivery Device Ventilator
[2019-09-16] MEDS: LEVOTHYROXINE 25 MCG TABLET PO SCH (07:07)
[2019-09-16] MEDS: BUDESONIDE 0.5 MG/2 ML NEB RESP TX SCH ×2 (07:28→19:30)
[2019-09-16] MEDS ORDERED: SODIUM CHLORIDE 0.9% 1,000 ML IV PRN (08:21)
[2019-09-16] MEDS: methylPREDNISolone SOD SUC 40 MG/1 ML VIAL IV SCH ×2 (11:38→21:12)
[2019-09-16] MEDS: FOLIC ACID 1 MG TABLET PO SCH (11:39)
[2019-09-16] MEDS: MULTIVITAMIN LIQUID (CENTRUM) 60 ML BOTTLE PO SCH (11:39)
[2019-09-16] MEDS: THIAMINE 100 MG TABLET PO SCH (11:41)
[2019-09-16] MEDS: OMEPRAZOLE ODT 20 MG TABLET PO SCH (11:41)
[2019-09-16] MEDS: HEPARIN DRIP 25,000 UNITS/500 ML PREMIX IV SCH (14:48)
[2019-09-16] MEDS: INSULIN GLARGINE 100 UNIT/ML SUBCUT SCH (21:16)
[2019-09-17] MEDS: INSULIN LISPRO 100 UNIT/ML SUBCUT SCH ×4 (00:43→18:15)
[2019-09-17] MEDS: ALBUTEROL/IPRATROPIUM 3 ML NEB RESP TX SCH ×6 (03:18→23:44)
[2019-09-17 05:12] LABS: ABG Base Excess -1.3 MMOL/L (-2.5-2.5); ABG HCO3 23.4 MMOL/L (20-26); ABG Oxygen Saturation 97.1 % (95-100); ABG PCO2 35.3 MM HG (35-48); ABG PH 7.419 (7.35-7.45); ABG PO2 85.7 MM HG (80-95); ABG TCO2 21.5 MMOL/L (23-27); Allen Test Positive
[2019-09-17 06:13] LABS: Basophils % 0.2 % (0.0-0.8); Hematocrit 23.6 VOL% (42.0-52.0); Hemoglobin 7.3 GM/DL (14.0-18.0); Immature Granulocytes % 5.1 %; Lymphocytes # 0.5 10*3/uL (1.4-4.0); Lymphocytes % 2.7 % (21.2-54.2); Mean Corpuscular HGB Conc 30.9 GM/DL (32-36); Mean Corpuscular Volume 95.9 FL (87-102); Mean Platelet Volume 11.4 FL (9.6-12.0); NRBC # 0.05 10*3/uL; Platelet Count 83 T/CUMM (130-400); Red Blood Count 2.46 MC/CUMM (3.8-5.5); Red Cell Distribution Width 16.4 % (9.3-17.3); White Blood Count 19.6 T/CUMM (4-12)
[2019-09-17 06:26] LABS: Calcium 8.7 MG/DL (8.5-10.1)
[2019-09-17 06:27] LABS: Osmolality,Calculated 338.1 MOS/KG (273-304)
[2019-09-17 06:42] LABS: Anisocytosis 1+; Hypochromasia 1+; Lymphocytes 2 % (20-55); Metamyelocytes 1 %; Promyelocytes 1 %; Segmented Neutrophils 94 % (50-85); Total Cells Counted 100
[2019-09-17 06:43] LABS: Ovalocytes Slight; Platelet Estimate Decreased; Polychromasia Slight
[2019-09-17] MEDS: LEVOTHYROXINE 25 MCG TABLET PO SCH (06:57)
[2019-09-17] MEDS: BUDESONIDE 0.5 MG/2 ML NEB RESP TX SCH ×2 (07:21→19:02)
[2019-09-17] MEDS: methylPREDNISolone SOD SUC 40 MG/1 ML VIAL IV SCH ×2 (08:15→21:35)
[2019-09-17] MEDS: MULTIVITAMIN LIQUID (CENTRUM) 60 ML BOTTLE PO SCH (08:16)
[2019-09-17] MEDS: THIAMINE 100 MG TABLET PO SCH (08:16)
[2019-09-17] MEDS: OMEPRAZOLE ODT 20 MG TABLET PO SCH (08:16)
[2019-09-17] MEDS: FOLIC ACID 1 MG TABLET PO SCH (08:16)
[2019-09-17] MEDS: ENOXAPARIN 100 MG/ML SYRINGE SUBCUT SCH (09:49)
[2019-09-17] MEDS: INSULIN GLARGINE 100 UNIT/ML SUBCUT SCH (21:36)
[2019-09-18] MEDS: ALBUTEROL/IPRATROPIUM 3 ML NEB RESP TX SCH ×5 (03:01→20:10)
[2019-09-18 04:33] LABS: Basophils % 0.1 % (0.0-0.8); Hematocrit 21.5 VOL% (42.0-52.0); Immature Granulocytes % 4.1 %; Immature Granulocytes Absolute 0.69 #; Lymphocytes # 0.5 10*3/uL (1.4-4.0); Lymphocytes % 2.9 % (21.2-54.2); Mean Corpuscular HGB Conc 32.6 GM/DL (32-36); Mean Corpuscular Volume 94.7 FL (87-102); Mean Platelet Volume 10.4 FL (9.6-12.0); Monocytes % 4.8 % (1.7-12.7); NRBC # 0.07 10*3/uL; Neutrophils % 88.1 % (38.7-73.9); Platelet Count 80 T/CUMM (130-400); Red Blood Count 2.27 MC/CUMM (3.8-5.5); Red Cell Distribution Width 16.5 % (9.3-17.3); White Blood Count 16.8 T/CUMM (4-12)
[2019-09-18 04:55] LABS: Lymphocytes 4 % (20-55); Platelet Estimate Decreased; Segmented Neutrophils 93 % (50-85); Total Cells Counted 100
[2019-09-18 04:56] LABS: Hypochromasia 1+; Microcytosis Slight
[2019-09-18 04:57] LABS: Calcium 8.5 MG/DL (8.5-10.1); Osmolality,Calculated 315.4 MOS/KG (273-304)
[2019-09-18] MEDS: LEVOTHYROXINE 25 MCG TABLET PO SCH (05:34)
[2019-09-18] MEDS: INSULIN LISPRO 100 UNIT/ML SUBCUT SCH ×4 (06:44→19:28)
[2019-09-18] MEDS: BUDESONIDE 0.5 MG/2 ML NEB RESP TX SCH ×2 (07:29→20:10)
[2019-09-18] MEDS: methylPREDNISolone SOD SUC 40 MG/1 ML VIAL IV SCH ×2 (08:08→21:00)
[2019-09-18] MEDS: THIAMINE 100 MG TABLET PO SCH (08:09)
[2019-09-18] MEDS: FOLIC ACID 1 MG TABLET PO SCH (08:09)
[2019-09-18] MEDS: OMEPRAZOLE ODT 20 MG TABLET PO SCH (08:09)
[2019-09-18] MEDS: MULTIVITAMIN LIQUID (CENTRUM) 60 ML BOTTLE PO SCH (08:09)
[2019-09-18] MEDS: ENOXAPARIN 100 MG/ML SYRINGE SUBCUT SCH (08:43)
[2019-09-18] MEDS: INSULIN GLARGINE 100 UNIT/ML SUBCUT SCH (21:00)
[2019-09-18] MEDS: ATORVASTATIN 40 MG TABLET PO SCH (21:00)
[2019-09-19] MEDS: ALBUTEROL/IPRATROPIUM 3 ML NEB RESP TX SCH ×7 (00:05→23:26)
[2019-09-19] MEDS: INSULIN LISPRO 100 UNIT/ML SUBCUT SCH ×4 (01:11→17:21)
[2019-09-19 06:36] LABS: Basophils % 0.1 % (0.0-0.8); Hematocrit 23.8 VOL% (42.0-52.0); Hemoglobin 7.5 GM/DL (14.0-18.0); Immature Granulocytes % 2.9 %; Immature Granulocytes Absolute 0.41 #; Lymphocytes # 0.5 10*3/uL (1.4-4.0); Lymphocytes % 3.4 % (21.2-54.2); Mean Corpuscular HGB Conc 31.5 GM/DL (32-36); Mean Corpuscular Volume 96.7 FL (87-102); Mean Platelet Volume 10.7 FL (9.6-12.0); Monocytes % 5.3 % (1.7-12.7); NRBC # 0.06 10*3/uL; Neutrophils % 88.3 % (38.7-73.9); Red Blood Count 2.46 MC/CUMM (3.8-5.5); Red Cell Distribution Width 16.8 % (9.3-17.3); White Blood Count 14.2 T/CUMM (4-12)
[2019-09-19 06:37] LABS: Platelet Count 99 T/CUMM (130-400)
[2019-09-19 06:57] LABS: Calcium 8.6 MG/DL (8.5-10.1); Osmolality,Calculated 322.8 MOS/KG (273-304)
[2019-09-19] MEDS: LEVOTHYROXINE 25 MCG TABLET PO SCH (07:06)
[2019-09-19 07:16] LABS: Hypochromasia 1+; Lymphocytes 2 % (20-55); Microcytosis Slight; Ovalocytes Slight; Platelet Estimate Decreased; Segmented Neutrophils 90 % (50-85); Total Cells Counted 100
[2019-09-19] MEDS: BUDESONIDE 0.5 MG/2 ML NEB RESP TX SCH ×2 (08:40→19:30)
[2019-09-19] MEDS: methylPREDNISolone SOD SUC 40 MG/1 ML VIAL IV SCH ×2 (13:00→21:36)
[2019-09-19] MEDS: THIAMINE 100 MG TABLET PO SCH (13:00)
[2019-09-19] MEDS: FOLIC ACID 1 MG TABLET PO SCH (13:00)
[2019-09-19] MEDS: OMEPRAZOLE ODT 20 MG TABLET PO SCH (13:00)
[2019-09-19] MEDS: ENOXAPARIN 100 MG/ML SYRINGE SUBCUT SCH (13:00)
[2019-09-19] MEDS: MULTIVITAMIN LIQUID (CENTRUM) 60 ML BOTTLE PO SCH (14:39)
[2019-09-19] MEDS: INSULIN GLARGINE 100 UNIT/ML SUBCUT SCH (21:36)
[2019-09-19] MEDS: ATORVASTATIN 40 MG TABLET PO SCH (21:37)
[2019-09-20] MEDS: INSULIN LISPRO 100 UNIT/ML SUBCUT SCH ×4 (00:30→17:15)
[2019-09-20] MEDS: ALBUTEROL/IPRATROPIUM 3 ML NEB RESP TX SCH ×5 (03:36→20:10)
[2019-09-20] MEDS: LEVOTHYROXINE 25 MCG TABLET PO SCH (06:21)
[2019-09-20 06:49] LABS: Basophils % 0.1 % (0.0-0.8); Hematocrit 24.5 VOL% (42.0-52.0); Hemoglobin 7.4 GM/DL (14.0-18.0); Immature Granulocytes Absolute 0.35 #; Lymphocytes # 0.7 10*3/uL (1.4-4.0); Lymphocytes % 3.7 % (21.2-54.2); Mean Corpuscular HGB Conc 30.2 GM/DL (32-36); Mean Corpuscular Volume 100.8 FL (87-102); Mean Platelet Volume 10.3 FL (9.6-12.0); Monocytes % 5.1 % (1.7-12.7); NRBC # 0.06 10*3/uL; Neutrophils % 89.1 % (38.7-73.9); Platelet Count 107 T/CUMM (130-400); Red Blood Count 2.43 MC/CUMM (3.8-5.5); Red Cell Distribution Width 17.2 % (9.3-17.3); White Blood Count 17.6 T/CUMM (4-12)
[2019-09-20 07:10] LABS: Calcium 8.7 MG/DL (8.5-10.1); Osmolality,Calculated 303.8 MOS/KG (273-304)
[2019-09-20] MEDS: BUDESONIDE 0.5 MG/2 ML NEB RESP TX SCH ×2 (07:10→20:18)
[2019-09-20 07:56] LABS: Lymphocytes 4 % (20-55); Segmented Neutrophils 90 % (50-85); Total Cells Counted 100
[2019-09-20 07:57] LABS: Anisocytosis 1+; Hypochromasia 1+; Polychromasia Slight
[2019-09-20 07:58] LABS: Platelet Estimate Decreased
[2019-09-20] MEDS: ENOXAPARIN 100 MG/ML SYRINGE SUBCUT SCH (08:36)
[2019-09-20] MEDS: MULTIVITAMIN LIQUID (CENTRUM) 60 ML BOTTLE PO SCH (08:36)
[2019-09-20] MEDS: FOLIC ACID 1 MG TABLET PO SCH (08:36)
[2019-09-20] MEDS: THIAMINE 100 MG TABLET PO SCH (08:36)
[2019-09-20] MEDS: methylPREDNISolone SOD SUC 40 MG/1 ML VIAL IV SCH (08:36)
[2019-09-20] MEDS: OMEPRAZOLE ODT 20 MG TABLET PO SCH (08:38)
[2019-09-20] MEDS ORDERED: BENZONATATE 100 MG CAPSULE PO PRN (12:52)
[2019-09-20] MEDS: ATORVASTATIN 40 MG TABLET PO SCH (20:31)
[2019-09-20] MEDS: INSULIN GLARGINE 100 UNIT/ML SUBCUT SCH (20:31)
[2019-09-21] MEDS: INSULIN LISPRO 100 UNIT/ML SUBCUT SCH ×4 (01:42→18:04)
[2019-09-21] MEDS: ALBUTEROL/IPRATROPIUM 3 ML NEB RESP TX SCH ×7 (02:13→23:20)
[2019-09-21] MEDS: LEVOTHYROXINE 25 MCG TABLET PO SCH (06:25)
[2019-09-21] MEDS: BUDESONIDE 0.5 MG/2 ML NEB RESP TX SCH ×2 (07:33→20:00)
[2019-09-21 08:00] LABS: Basophils % 0.1 % (0.0-0.8); Eosinophils # 0.1 10*3/uL (0.0-0.87); Eosinophils % 0.3 % (0.00-10.9); Hematocrit 25.6 VOL% (42.0-52.0); Hemoglobin 7.7 GM/DL (14.0-18.0); Immature Granulocytes Absolute 0.15 #; Lymphocytes # 0.9 10*3/uL (1.4-4.0); Lymphocytes % 6.1 % (21.2-54.2); Mean Corpuscular HGB Conc 30.1 GM/DL (32-36); Mean Corpuscular Volume 102.4 FL (87-102); Mean Platelet Volume 10.3 FL (9.6-12.0); Monocytes % 6.2 % (1.7-12.7); NRBC # 0.05 10*3/uL; Neutrophils % 86.3 % (38.7-73.9); Platelet Count 113 T/CUMM (130-400); Red Cell Distribution Width 17.2 % (9.3-17.3); White Blood Count 14.7 T/CUMM (4-12)
[2019-09-21 08:25] LABS: Calcium 8.9 MG/DL (8.5-10.1); Osmolality,Calculated 305.6 MOS/KG (273-304)
[2019-09-21] MEDS: MULTIVITAMIN LIQUID (CENTRUM) 60 ML BOTTLE PO SCH (08:54)
[2019-09-21] MEDS: ENOXAPARIN 100 MG/ML SYRINGE SUBCUT SCH (08:55)
[2019-09-21] MEDS: FOLIC ACID 1 MG TABLET PO SCH (08:55)
[2019-09-21] MEDS: predniSONE 20 MG TABLET PO SCH (08:55)
[2019-09-21] MEDS: amLODIPine 10 MG TABLET PO SCH (08:55)
[2019-09-21] MEDS: OMEPRAZOLE ODT 20 MG TABLET PO SCH (08:55)
[2019-09-21] MEDS: THIAMINE 100 MG TABLET PO SCH (09:05)
[2019-09-21] MEDS: PHENOL 1.4% THROAT SPRAY 177 ML BOTTLE PO PRN (10:35)
[2019-09-21] MEDS: POTASSIUM CHLORIDE 20 MEQ/15 ML UDCUP PO PRN (18:05)
[2019-09-21] MEDS ORDERED: CHOLESTYRAMINE 4 GM PACK PO SCH (18:30)
[2019-09-21] MEDS: POTASSIUM CHLORIDE RIDER 10 MEQ in PREMIX 1 EACH IV PRN ×4 (18:32→22:54)
[2019-09-21] MEDS: INSULIN GLARGINE 100 UNIT/ML SUBCUT SCH (21:53)
[2019-09-21] MEDS: ATORVASTATIN 40 MG TABLET PO SCH (21:53)
[2019-09-22] MEDS: INSULIN LISPRO 100 UNIT/ML SUBCUT SCH ×4 (00:12→17:56)
[2019-09-22] MEDS: ALBUTEROL/IPRATROPIUM 3 ML NEB RESP TX SCH ×6 (03:04→23:00)
[2019-09-22 03:17] LABS: Eosinophils % 0.2 % (0.00-10.9); Hematocrit 26.8 VOL% (42.0-52.0); Immature Granulocytes % 0.7 %; Lymphocytes % 6.6 % (21.2-54.2); Mean Corpuscular HGB Conc 29.9 GM/DL (32-36); Mean Corpuscular Volume 103.5 FL (87-102); Mean Platelet Volume 9.8 FL (9.6-12.0); Monocytes % 6.2 % (1.7-12.7); NRBC # 0.03 10*3/uL; Neutrophils % 86.3 % (38.7-73.9); Platelet Count 122 T/CUMM (130-400); Red Blood Count 2.59 MC/CUMM (3.8-5.5); Red Cell Distribution Width 17.3 % (9.3-17.3); White Blood Count 14.4 T/CUMM (4-12)
[2019-09-22 03:44] LABS: Calcium 8.8 MG/DL (8.5-10.1)
[2019-09-22] MEDS: LEVOTHYROXINE 25 MCG TABLET PO SCH (06:34)
[2019-09-22] MEDS: BUDESONIDE 0.5 MG/2 ML NEB RESP TX SCH ×2 (07:29→19:23)
[2019-09-22] MEDS: MULTIVITAMIN LIQUID (CENTRUM) 60 ML BOTTLE PO SCH (08:58)
[2019-09-22] MEDS: THIAMINE 100 MG TABLET PO SCH (08:59)
[2019-09-22] MEDS: amLODIPine 10 MG TABLET PO SCH (08:59)
[2019-09-22] MEDS: predniSONE 20 MG TABLET PO SCH (08:59)
[2019-09-22] MEDS: FOLIC ACID 1 MG TABLET PO SCH (08:59)
[2019-09-22] MEDS: ENOXAPARIN 100 MG/ML SYRINGE SUBCUT SCH (09:00)
[2019-09-22] MEDS: OMEPRAZOLE ODT 20 MG TABLET PO SCH (09:01)
[2019-09-22] MEDS: DEXTROSE 5% 1,000 ML IV SCH ×2 (12:57→23:22)
[2019-09-22] MEDS: ATORVASTATIN 40 MG TABLET PO SCH (21:07)
[2019-09-22] MEDS: INSULIN GLARGINE 100 UNIT/ML SUBCUT SCH (21:07)
[2019-09-23] MEDS: INSULIN LISPRO 100 UNIT/ML SUBCUT SCH ×3 (02:04→12:24)
[2019-09-23] MEDS: ALBUTEROL/IPRATROPIUM 3 ML NEB RESP TX SCH ×6 (03:45→23:55)
[2019-09-23 05:55] LABS: Basophils % 0.1 % (0.0-0.8); Eosinophils # 0.1 10*3/uL (0.0-0.87); Eosinophils % 0.5 % (0.00-10.9); Hemoglobin 7.7 GM/DL (14.0-18.0); Immature Granulocytes % 0.7 %; Immature Granulocytes Absolute 0.09 #; Lymphocytes # 1.1 10*3/uL (1.4-4.0); Lymphocytes % 8.5 % (21.2-54.2); Mean Corpuscular HGB Conc 29.6 GM/DL (32-36); Mean Corpuscular Volume 102.8 FL (87-102); Mean Platelet Volume 10.1 FL (9.6-12.0); Monocytes % 6.6 % (1.7-12.7); NRBC # 0.04 10*3/uL; Neutrophils % 83.6 % (38.7-73.9); Platelet Count 129 T/CUMM (130-400); Red Blood Count 2.53 MC/CUMM (3.8-5.5); Red Cell Distribution Width 17.1 % (9.3-17.3); White Blood Count 12.9 T/CUMM (4-12)
[2019-09-23] MEDS: LEVOTHYROXINE 25 MCG TABLET PO SCH (06:27)
[2019-09-23 06:34] LABS: Calcium 8.6 MG/DL (8.5-10.1); Osmolality,Calculated 303.4 MOS/KG (273-304)
[2019-09-23] MEDS: BUDESONIDE 0.5 MG/2 ML NEB RESP TX SCH ×2 (07:50→20:21)
[2019-09-23] MEDS: ENOXAPARIN 100 MG/ML SYRINGE SUBCUT SCH (08:45)
[2019-09-23] MEDS: POTASSIUM CHLORIDE RIDER 10 MEQ in PREMIX 1 EACH IV PRN ×6 (09:09→23:41)
[2019-09-23] MEDS: MULTIVITAMIN LIQUID (CENTRUM) 60 ML BOTTLE PO SCH (09:58)
[2019-09-23] MEDS: amLODIPine 10 MG TABLET PO SCH (09:58)
[2019-09-23] MEDS: OMEPRAZOLE ODT 20 MG TABLET PO SCH (09:58)
[2019-09-23] MEDS: FOLIC ACID 1 MG TABLET PO SCH (09:58)
[2019-09-23] MEDS: predniSONE 10 MG TABLET PO SCH (09:58)
[2019-09-23] MEDS: THIAMINE 100 MG TABLET PO SCH (09:59)
[2019-09-23] MEDS: DEXTROSE 5% 1,000 ML IV SCH ×2 (11:28→22:38)
[2019-09-23] MEDS: FLUCONAZOLE 100 MG TABLET PO SCH (11:29)
[2019-09-23] MEDS: INSULIN GLARGINE 100 UNIT/ML SUBCUT SCH (20:38)
[2019-09-23] MEDS: ACETAMINOPHEN 325 MG TABLET PO PRN (23:43)
[2019-09-23] MEDS: PHENOL 1.4% THROAT SPRAY 177 ML BOTTLE PO PRN (23:45)
[2019-09-24] MEDS: POTASSIUM CHLORIDE RIDER 10 MEQ in PREMIX 1 EACH IV PRN ×4 (00:41→03:42)
[2019-09-24] MEDS: ALBUTEROL/IPRATROPIUM 3 ML NEB RESP TX SCH ×5 (03:39→21:07)
[2019-09-24] MEDS: LEVOTHYROXINE 25 MCG TABLET PO SCH ×2 (05:32→05:55)
[2019-09-24 05:59] LABS: Eosinophils # 0.1 10*3/uL (0.0-0.87); Eosinophils % 1.3 % (0.00-10.9); Hematocrit 24.9 VOL% (42.0-52.0); Hemoglobin 7.5 GM/DL (14.0-18.0); Immature Granulocytes % 0.8 %; Immature Granulocytes Absolute 0.08 #; Lymphocytes # 1.3 10*3/uL (1.4-4.0); Mean Corpuscular HGB Conc 30.1 GM/DL (32-36); Mean Corpuscular Volume 102.5 FL (87-102); Mean Platelet Volume 10.1 FL (9.6-12.0); Monocytes % 7.3 % (1.7-12.7); NRBC # 0.02 10*3/uL; Neutrophils % 78.6 % (38.7-73.9); Platelet Count 126 T/CUMM (130-400); Red Blood Count 2.43 MC/CUMM (3.8-5.5); Red Cell Distribution Width 16.9 % (9.3-17.3); White Blood Count 10.6 T/CUMM (4-12)
[2019-09-24 06:19] LABS: Calcium 8.1 MG/DL (8.5-10.1); Osmolality,Calculated 294.7 MOS/KG (273-304)
[2019-09-24] MEDS: amLODIPine 10 MG TABLET PO SCH (08:51)
[2019-09-24] MEDS: predniSONE 10 MG TABLET PO SCH (08:52)
[2019-09-24] MEDS: ENOXAPARIN 100 MG/ML SYRINGE SUBCUT SCH (08:52)
[2019-09-24] MEDS: THIAMINE 100 MG TABLET PO SCH (08:52)
[2019-09-24] MEDS: POTASSIUM CHLORIDE 20 MEQ TABLET PO SCH (08:52)
[2019-09-24] MEDS: FLUCONAZOLE 100 MG TABLET PO SCH (08:52)
[2019-09-24] MEDS: OMEPRAZOLE ODT 20 MG TABLET PO SCH (08:52)
[2019-09-24] MEDS: MULTIVITAMIN LIQUID (CENTRUM) 60 ML BOTTLE PO SCH (10:59)
[2019-09-24] MEDS: FOLIC ACID 1 MG TABLET PO SCH (10:59)
[2019-09-24] MEDS: BUDESONIDE 0.5 MG/2 ML NEB RESP TX SCH ×2 (11:00→21:07)
[2019-09-24 12:20] LABS: Amorphous Crystals,Urine Few /HPF (Few); Apearance,Urine Slightly Hazy (Clear); Bacteria,Urine Occasional /HPF (Few); Bilirubin,Urine Negative (Negative); Blood, Urine Moderate mg/dL (Negative); Glucose,Urine (UA) Negative (Negative); Ketones,Urine Negative (Negative); Nitrite,Urine Negative (Negative); Protein,Urine 100 MG/DL; RBC,Urine 19 /HPF (0-4); Sperm,Urine Occasional /HPF (Negative); Urine Color Yellow (Yellow); Urine Urobilinogen < 2.0 EU/DL (0.2-1.0); WBC,Urine 7 /HPF (0-6)
[2019-09-24] MEDS: INSULIN GLARGINE 100 UNIT/ML SUBCUT SCH (20:32)
[2019-09-24] MEDS: DEXTROSE 5% 1,000 ML IV SCH (20:32)
[2019-09-25] MEDS: ALBUTEROL/IPRATROPIUM 3 ML NEB RESP TX SCH ×6 (01:17→23:00)
[2019-09-25] MEDS: LEVOTHYROXINE 25 MCG TABLET PO SCH (06:01)
[2019-09-25 06:23] LABS: Basophils % 0.1 % (0.0-0.8); Eosinophils # 0.1 10*3/uL (0.0-0.87); Eosinophils % 1.3 % (0.00-10.9); Hemoglobin 7.7 GM/DL (14.0-18.0); Immature Granulocytes % 0.5 %; Immature Granulocytes Absolute 0.05 #; Lymphocytes # 1.2 10*3/uL (1.4-4.0); Mean Corpuscular HGB Conc 29.6 GM/DL (32-36); Mean Corpuscular Volume 100.4 FL (87-102); Mean Platelet Volume 9.9 FL (9.6-12.0); Monocytes % 6.7 % (1.7-12.7); Neutrophils % 80.4 % (38.7-73.9); Platelet Count 117 T/CUMM (130-400); Red Blood Count 2.59 MC/CUMM (3.8-5.5); Red Cell Distribution Width 16.6 % (9.3-17.3); White Blood Count 10.6 T/CUMM (4-12)
[2019-09-25 06:41] LABS: Calcium 7.9 MG/DL (8.5-10.1); Osmolality,Calculated 288.8 MOS/KG (273-304)
[2019-09-25] MEDS: BUDESONIDE 0.5 MG/2 ML NEB RESP TX SCH ×2 (07:20→19:30)
[2019-09-25] MEDS: FLUCONAZOLE 100 MG TABLET PO SCH (09:21)
[2019-09-25] MEDS: THIAMINE 100 MG TABLET PO SCH (09:21)
[2019-09-25] MEDS: FOLIC ACID 1 MG TABLET PO SCH (09:21)
[2019-09-25] MEDS: POTASSIUM CHLORIDE 20 MEQ TABLET PO SCH (09:21)
[2019-09-25] MEDS: amLODIPine 10 MG TABLET PO SCH (09:21)
[2019-09-25] MEDS: predniSONE 10 MG TABLET PO SCH (09:22)
[2019-09-25] MEDS: OMEPRAZOLE ODT 20 MG TABLET PO SCH (09:22)
[2019-09-25] MEDS: ENOXAPARIN 100 MG/ML SYRINGE SUBCUT SCH (09:22)
[2019-09-25] MEDS: MULTIVITAMIN LIQUID (CENTRUM) 60 ML BOTTLE PO SCH (10:27)
[2019-09-25] MEDS: DEXTROSE 5% 1,000 ML IV SCH (10:28)
[2019-09-25] MEDS: INSULIN GLARGINE 100 UNIT/ML SUBCUT SCH (20:49)
[2019-09-26] MEDS: ALBUTEROL/IPRATROPIUM 3 ML NEB RESP TX SCH ×6 (01:51→19:10)
[2019-09-26] MEDS: LEVOTHYROXINE 25 MCG TABLET PO SCH (05:52)
[2019-09-26] MEDS: DEXTROSE 5% 1,000 ML IV SCH ×2 (05:52→21:00)
[2019-09-26] MEDS: BUDESONIDE 0.5 MG/2 ML NEB RESP TX SCH ×2 (07:40→19:10)
[2019-09-26 08:07] LABS: Basophils % 0.1 % (0.0-0.8); Eosinophils # 0.2 10*3/uL (0.0-0.87); Eosinophils % 2.2 % (0.00-10.9); Hematocrit 24.7 VOL% (42.0-52.0); Hemoglobin 7.4 GM/DL (14.0-18.0); Immature Granulocytes % 0.3 %; Immature Granulocytes Absolute 0.03 #; Lymphocytes # 1.2 10*3/uL (1.4-4.0); Lymphocytes % 13.8 % (21.2-54.2); Mean Corpuscular Volume 100.8 FL (87-102); Monocytes % 6.2 % (1.7-12.7); Neutrophils % 77.4 % (38.7-73.9); Platelet Count 127 T/CUMM (130-400); Red Blood Count 2.45 MC/CUMM (3.8-5.5); Red Cell Distribution Width 16.6 % (9.3-17.3); White Blood Count 8.8 T/CUMM (4-12)
[2019-09-26 08:38] LABS: Calcium 7.8 MG/DL (8.5-10.1); Osmolality,Calculated 286.8 MOS/KG (273-304)
[2019-09-26] MEDS: POTASSIUM CHLORIDE 20 MEQ TABLET PO SCH (08:42)
[2019-09-26] MEDS: predniSONE 10 MG TABLET PO SCH (08:42)
[2019-09-26] MEDS: OMEPRAZOLE ODT 20 MG TABLET PO SCH (08:42)
[2019-09-26] MEDS: THIAMINE 100 MG TABLET PO SCH (08:42)
[2019-09-26] MEDS: amLODIPine 10 MG TABLET PO SCH (08:43)
[2019-09-26] MEDS: ENOXAPARIN 100 MG/ML SYRINGE SUBCUT SCH (08:43)
[2019-09-26] MEDS: FOLIC ACID 1 MG TABLET PO SCH (08:43)
[2019-09-26] MEDS: MULTIVITAMIN LIQUID (CENTRUM) 60 ML BOTTLE PO SCH (08:43)
[2019-09-26] MEDS ORDERED: POTASSIUM CHLORIDE 20 MEQ TABLET PO SCH (09:40)
[2019-09-26] MEDS ORDERED: MAGNESIUM OXIDE 400 MG TABLET PO SCH (10:00)
[2019-09-26] MEDS: CHOLECALCIFEROL 1,000 UNIT TABLET PO SCH (11:09)
[2019-09-26] MEDS: ACETAMINOPHEN 325 MG TABLET PO PRN (15:52)
[2019-09-26] MEDS: INSULIN GLARGINE 100 UNIT/ML SUBCUT SCH (21:01)
[2019-09-27] MEDS: ALBUTEROL/IPRATROPIUM 3 ML NEB RESP TX SCH ×7 (03:05→23:52)
[2019-09-27 03:30] LABS: Basophils % 0.1 % (0.0-0.8); Eosinophils # 0.2 10*3/uL (0.0-0.87); Eosinophils % 1.9 % (0.00-10.9); Hemoglobin 7.5 GM/DL (14.0-18.0); Immature Granulocytes % 0.5 %; Immature Granulocytes Absolute 0.04 #; Lymphocytes # 1.3 10*3/uL (1.4-4.0); Lymphocytes % 16.1 % (21.2-54.2); Mean Corpuscular Volume 100.8 FL (87-102); Monocytes % 6.4 % (1.7-12.7); Platelet Count 134 T/CUMM (130-400); Red Blood Count 2.48 MC/CUMM (3.8-5.5); Red Cell Distribution Width 16.7 % (9.3-17.3)
[2019-09-27 03:56] LABS: Calcium 7.6 MG/DL (8.5-10.1); Osmolality,Calculated 285.8 MOS/KG (273-304)
[2019-09-27 04:01] LABS: % Iron Saturation 16.3 % (18-50); Ferritin 283.1 ng/ml (26-388)
[2019-09-27] MEDS: DEXTROSE 5% 1,000 ML IV SCH ×2 (05:46→18:40)
[2019-09-27] MEDS: LEVOTHYROXINE 25 MCG TABLET PO SCH (05:46)
[2019-09-27] MEDS: BUDESONIDE 0.5 MG/2 ML NEB RESP TX SCH ×2 (07:50→18:58)
[2019-09-27] MEDS ORDERED: MAGNESIUM SULF RIDER 2 GM in PREMIX 1 EACH IV ONE (07:51)
[2019-09-27] MEDS: MULTIVITAMIN LIQUID (CENTRUM) 60 ML BOTTLE PO SCH (10:00)
[2019-09-27] MEDS: POLYETHYLENE GLYCOL POWDER 17 GM PACK PO SCH ×2 (10:00→20:51)
[2019-09-27] MEDS: ENOXAPARIN 100 MG/ML SYRINGE SUBCUT SCH (10:00)
[2019-09-27] MEDS: FERROUS SULFATE 325 MG TABLET PO SCH ×2 (10:02→20:51)
[2019-09-27] MEDS: OMEPRAZOLE ODT 20 MG TABLET PO SCH (10:02)
[2019-09-27] MEDS: MAGNESIUM OXIDE 400 MG TABLET PO SCH ×2 (10:02→20:51)
[2019-09-27] MEDS: FOLIC ACID 1 MG TABLET PO SCH (10:02)
[2019-09-27] MEDS: POTASSIUM CHLORIDE 20 MEQ TABLET PO SCH ×2 (10:02→20:50)
[2019-09-27] MEDS: THIAMINE 100 MG TABLET PO SCH (10:03)
[2019-09-27] MEDS: DOCUSATE SODIUM 100 MG CAPSULE PO SCH ×2 (10:03→20:51)
[2019-09-27] MEDS: predniSONE 10 MG TABLET PO SCH (10:03)
[2019-09-27] MEDS: CHOLECALCIFEROL 1,000 UNIT TABLET PO SCH (10:04)
[2019-09-27] MEDS: amLODIPine 10 MG TABLET PO SCH (10:04)
[2019-09-27] MEDS: POTASSIUM CHLORIDE 20 MEQ/15 ML UDCUP PO PRN (13:32)
[2019-09-27] MEDS: RIVAROXABAN 15 MG TABLET PO SCH (17:23)
[2019-09-27] MEDS: INSULIN GLARGINE 100 UNIT/ML SUBCUT SCH (20:50)
[2019-09-27] MEDS: CALCIUM (CARBONATE) 500 MG TABLET PO SCH (20:54)
[2019-09-28] MEDS: DEXTROSE 5% 1,000 ML IV SCH (02:59)
[2019-09-28] MEDS: ALBUTEROL/IPRATROPIUM 3 ML NEB RESP TX SCH ×6 (03:28→23:09)
[2019-09-28] MEDS: LEVOTHYROXINE 25 MCG TABLET PO SCH (05:34)
[2019-09-28 06:32] LABS: Basophils % 0.1 % (0.0-0.8); Eosinophils # 0.2 10*3/uL (0.0-0.87); Eosinophils % 2.6 % (0.00-10.9); Hemoglobin 7.6 GM/DL (14.0-18.0); Immature Granulocytes % 0.3 %; Immature Granulocytes Absolute 0.02 #; Lymphocytes # 1.2 10*3/uL (1.4-4.0); Lymphocytes % 15.6 % (21.2-54.2); Mean Corpuscular HGB Conc 29.2 GM/DL (32-36); Mean Corpuscular Volume 101.2 FL (87-102); Mean Platelet Volume 10.1 FL (9.6-12.0); Monocytes % 7.3 % (1.7-12.7); Neutrophils % 74.1 % (38.7-73.9); Platelet Count 155 T/CUMM (130-400); Red Blood Count 2.57 MC/CUMM (3.8-5.5); Red Cell Distribution Width 16.4 % (9.3-17.3); White Blood Count 7.8 T/CUMM (4-12)
[2019-09-28 06:34] LABS: Calcium 7.9 MG/DL (8.5-10.1); Osmolality,Calculated 276.4 MOS/KG (273-304)
[2019-09-28] MEDS: BUDESONIDE 0.5 MG/2 ML NEB RESP TX SCH ×2 (07:00→19:01)
[2019-09-28] MEDS ORDERED: MAGNESIUM SULF RIDER 2 GM in PREMIX 1 EACH IV ONE (07:01)
[2019-09-28] MEDS: RIVAROXABAN 15 MG TABLET PO SCH ×2 (08:22→16:17)
[2019-09-28] MEDS: MULTIVITAMIN LIQUID (CENTRUM) 60 ML BOTTLE PO SCH (08:22)
[2019-09-28] MEDS: CHOLECALCIFEROL 1,000 UNIT TABLET PO SCH (08:23)
[2019-09-28] MEDS: CALCIUM (CARBONATE) 500 MG TABLET PO SCH ×2 (08:23→20:24)
[2019-09-28] MEDS: amLODIPine 10 MG TABLET PO SCH (08:23)
[2019-09-28] MEDS: MAGNESIUM OXIDE 400 MG TABLET PO SCH ×4 (08:23→20:24)
[2019-09-28] MEDS: POTASSIUM CHLORIDE 20 MEQ TABLET PO SCH ×2 (08:24→20:24)
[2019-09-28] MEDS: OMEPRAZOLE ODT 20 MG TABLET PO SCH (08:24)
[2019-09-28] MEDS: THIAMINE 100 MG TABLET PO SCH (08:24)
[2019-09-28] MEDS: predniSONE 10 MG TABLET PO SCH (08:24)
[2019-09-28] MEDS: POLYETHYLENE GLYCOL POWDER 17 GM PACK PO SCH ×2 (08:24→20:24)
[2019-09-28] MEDS: FOLIC ACID 1 MG TABLET PO SCH (08:32)
[2019-09-28] MEDS: DOCUSATE SODIUM 100 MG CAPSULE PO SCH ×2 (08:32→20:23)
[2019-09-28] MEDS: FERROUS SULFATE 325 MG TABLET PO SCH ×2 (08:32→20:23)
[2019-09-28] MEDS: ONDANSETRON 4 MG/2 ML VIAL IV PRN (20:22)
[2019-09-28] MEDS: INSULIN GLARGINE 100 UNIT/ML SUBCUT SCH (20:23)
[2019-09-29] MEDS: ALBUTEROL/IPRATROPIUM 3 ML NEB RESP TX SCH ×5 (03:25→20:16)
[2019-09-29 05:48] LABS: Basophils % 0.1 % (0.0-0.8); Eosinophils # 0.2 10*3/uL (0.0-0.87); Eosinophils % 2.4 % (0.00-10.9); Hemoglobin 7.5 GM/DL (14.0-18.0); Immature Granulocytes % 0.3 %; Immature Granulocytes Absolute 0.02 #; Lymphocytes # 0.9 10*3/uL (1.4-4.0); Lymphocytes % 13.5 % (21.2-54.2); Mean Corpuscular Volume 100.4 FL (87-102); Mean Platelet Volume 9.5 FL (9.6-12.0); Monocytes % 6.1 % (1.7-12.7); Neutrophils % 77.6 % (38.7-73.9); Platelet Count 171 T/CUMM (130-400); Red Blood Count 2.49 MC/CUMM (3.8-5.5); Red Cell Distribution Width 16.6 % (9.3-17.3); White Blood Count 6.7 T/CUMM (4-12)
[2019-09-29] MEDS: LEVOTHYROXINE 25 MCG TABLET PO SCH (05:59)
[2019-09-29 06:04] LABS: Calcium 8.4 MG/DL (8.5-10.1); Osmolality,Calculated 280.1 MOS/KG (273-304)
[2019-09-29] MEDS: BUDESONIDE 0.5 MG/2 ML NEB RESP TX SCH ×2 (07:15→20:16)
[2019-09-29] MEDS: MAGNESIUM OXIDE 400 MG TABLET PO SCH ×2 (09:36→22:01)
[2019-09-29] MEDS: CALCIUM (CARBONATE) 500 MG TABLET PO SCH ×2 (09:37→22:01)
[2019-09-29] MEDS: RIVAROXABAN 15 MG TABLET PO SCH ×2 (09:37→17:11)
[2019-09-29] MEDS: OMEPRAZOLE ODT 20 MG TABLET PO SCH (09:37)
[2019-09-29] MEDS: CHOLECALCIFEROL 1,000 UNIT TABLET PO SCH (09:37)
[2019-09-29] MEDS: FOLIC ACID 1 MG TABLET PO SCH (09:37)
[2019-09-29] MEDS: FERROUS SULFATE 325 MG TABLET PO SCH ×2 (09:37→22:01)
[2019-09-29] MEDS: predniSONE 10 MG TABLET PO SCH (09:37)
[2019-09-29] MEDS: THIAMINE 100 MG TABLET PO SCH (09:38)
[2019-09-29] MEDS: POLYETHYLENE GLYCOL POWDER 17 GM PACK PO SCH ×2 (09:38→22:01)
[2019-09-29] MEDS: DOCUSATE SODIUM 100 MG CAPSULE PO SCH ×2 (09:38→22:00)
[2019-09-29] MEDS: amLODIPine 10 MG TABLET PO SCH (09:38)
[2019-09-29] MEDS: MULTIVITAMIN LIQUID (CENTRUM) 60 ML BOTTLE PO SCH (11:30)
[2019-09-29] MEDS: POTASSIUM CHLORIDE 20 MEQ TABLET PO SCH ×2 (11:30→22:01)
[2019-09-29] MEDS: ACETAMINOPHEN 325 MG TABLET PO PRN (15:42)
[2019-09-29] MEDS: INSULIN GLARGINE 100 UNIT/ML SUBCUT SCH (22:01)
[2019-09-30] MEDS: ALBUTEROL/IPRATROPIUM 3 ML NEB RESP TX SCH ×6 (00:26→20:40)
[2019-09-30 04:17] LABS: Basophils % 0.2 % (0.0-0.8); Eosinophils # 0.2 10*3/uL (0.0-0.87); Eosinophils % 4.1 % (0.00-10.9); Hematocrit 24.1 VOL% (42.0-52.0); Hemoglobin 7.4 GM/DL (14.0-18.0); Immature Granulocytes % 0.4 %; Immature Granulocytes Absolute 0.02 #; Lymphocytes # 1.2 10*3/uL (1.4-4.0); Lymphocytes % 22.9 % (21.2-54.2); Mean Corpuscular HGB Conc 30.7 GM/DL (32-36); Mean Corpuscular Volume 99.6 FL (87-102); Mean Platelet Volume 9.8 FL (9.6-12.0); Monocytes % 7.5 % (1.7-12.7); Neutrophils % 64.9 % (38.7-73.9); Platelet Count 190 T/CUMM (130-400); Red Blood Count 2.42 MC/CUMM (3.8-5.5); Red Cell Distribution Width 16.7 % (9.3-17.3); White Blood Count 5.3 T/CUMM (4-12)
[2019-09-30 05:16] LABS: Calcium 8.6 MG/DL (8.5-10.1); Osmolality,Calculated 280.1 MOS/KG (273-304)
[2019-09-30] MEDS: LEVOTHYROXINE 25 MCG TABLET PO SCH (05:39)
[2019-09-30] MEDS: BUDESONIDE 0.5 MG/2 ML NEB RESP TX SCH ×2 (07:25→20:40)
[2019-09-30] MEDS: POLYETHYLENE GLYCOL POWDER 17 GM PACK PO SCH ×2 (09:03→22:07)
[2019-09-30] MEDS: CHOLECALCIFEROL 1,000 UNIT TABLET PO SCH (09:03)
[2019-09-30] MEDS: MAGNESIUM OXIDE 400 MG TABLET PO SCH ×2 (09:03→22:08)
[2019-09-30] MEDS: POTASSIUM CHLORIDE 20 MEQ TABLET PO SCH ×2 (09:03→22:07)
[2019-09-30] MEDS: FOLIC ACID 1 MG TABLET PO SCH (09:03)
[2019-09-30] MEDS: RIVAROXABAN 15 MG TABLET PO SCH ×2 (09:03→16:08)
[2019-09-30] MEDS: amLODIPine 10 MG TABLET PO SCH (09:04)
[2019-09-30] MEDS: OMEPRAZOLE ODT 20 MG TABLET PO SCH (09:04)
[2019-09-30] MEDS: THIAMINE 100 MG TABLET PO SCH (09:04)
[2019-09-30] MEDS: predniSONE 10 MG TABLET PO SCH (09:04)
[2019-09-30] MEDS: CALCIUM (CARBONATE) 500 MG TABLET PO SCH ×2 (09:04→22:07)
[2019-09-30] MEDS: DOCUSATE SODIUM 100 MG CAPSULE PO SCH ×2 (09:04→22:07)
[2019-09-30] MEDS: MULTIVITAMIN LIQUID (CENTRUM) 60 ML BOTTLE PO SCH (09:05)
[2019-09-30] MEDS: FERROUS SULFATE 325 MG TABLET PO SCH ×2 (09:05→22:07)
[2019-09-30] MEDS: ACETAMINOPHEN 325 MG TABLET PO PRN (16:08)
[2019-09-30] MEDS: INSULIN GLARGINE 100 UNIT/ML SUBCUT SCH (22:08)
[2019-10-01] MEDS: ALBUTEROL/IPRATROPIUM 3 ML NEB RESP TX SCH ×5 (00:44→14:03)
[2019-10-01] MEDS: LEVOTHYROXINE 25 MCG TABLET PO SCH (06:37)
[2019-10-01] MEDS: BUDESONIDE 0.5 MG/2 ML NEB RESP TX SCH (07:25)
[2019-10-01] MEDS: POTASSIUM CHLORIDE 20 MEQ TABLET PO SCH (08:33)
[2019-10-01] MEDS: DOCUSATE SODIUM 100 MG CAPSULE PO SCH (08:34)
[2019-10-01] MEDS: FOLIC ACID 1 MG TABLET PO SCH (08:34)
[2019-10-01] MEDS: RIVAROXABAN 15 MG TABLET PO SCH (08:34)
[2019-10-01] MEDS: MAGNESIUM OXIDE 400 MG TABLET PO SCH (08:34)
[2019-10-01] MEDS: OMEPRAZOLE ODT 20 MG TABLET PO SCH (08:34)
[2019-10-01] MEDS: CHOLECALCIFEROL 1,000 UNIT TABLET PO SCH (08:34)
[2019-10-01] MEDS: POLYETHYLENE GLYCOL POWDER 17 GM PACK PO SCH (08:35)
[2019-10-01] MEDS: amLODIPine 10 MG TABLET PO SCH (08:35)
[2019-10-01] MEDS: FERROUS SULFATE 325 MG TABLET PO SCH (08:35)
[2019-10-01] MEDS: THIAMINE 100 MG TABLET PO SCH (08:35)
[2019-10-01] MEDS: CALCIUM (CARBONATE) 500 MG TABLET PO SCH (08:35)
[2019-10-01] MEDS: predniSONE 10 MG TABLET PO SCH (08:35)
[2019-10-01] MEDS ORDERED: OMEGA 3 ACID ETHYL ESTERS 1 GM CAPSULE PO SCH (10:00)
[2019-10-01] MEDS ORDERED: ERGOCALCIFEROL 50,000 UNIT CAPSULE PO ONE (10:01)
[2019-10-01 11:36] LABS: Basophils % 0.3 % (0.0-0.8); Eosinophils # 0.3 10*3/uL (0.0-0.87); Eosinophils % 4.2 % (0.00-10.9); Hematocrit 28.2 VOL% (42.0-52.0); Hemoglobin 8.1 GM/DL (14.0-18.0); Immature Granulocytes % 0.7 %; Immature Granulocytes Absolute 0.04 #; Lymphocytes # 1.1 10*3/uL (1.4-4.0); Lymphocytes % 18.8 % (21.2-54.2); Mean Corpuscular HGB Conc 28.7 GM/DL (32-36); Mean Corpuscular Volume 104.4 FL (87-102); Mean Platelet Volume 8.8 FL (9.6-12.0); Monocytes % 7.4 % (1.7-12.7); Neutrophils % 68.6 % (38.7-73.9); Platelet Count 246 T/CUMM (130-400); Red Cell Distribution Width 16.9 % (9.3-17.3)
[2019-10-01 12:15] VITALS: BP 115/76
[2019-10-01 12:21] LABS: Platelet Estimate Normal
[2019-10-01 12:23] LABS: Hypochromasia Slight
[2019-10-01 12:24] LABS: Anisocytosis 2+; Macrocytosis 1+
[2019-10-01] MEDS: MULTIVITAMIN LIQUID (CENTRUM) 60 ML BOTTLE PO SCH (14:38)
== END 2019-10-01 15:10 | disposition swing bed (61) | DRG 207 ==
LOC: N.ED 10:36 → N.EDINP 15:16 → SUATTDRO 15:16 → N.TELES 18:28 → N.EDINP 18:29 → N.ICU 09-06 17:40 → N.4E 09-18 10:07
PROVIDERS: ADMIT Family Medicine; ATTEND Hospitalist

== ENCOUNTER 2019-12-04 09:59 | Inpatient (IN) ==
[2019-12-04] MEDS ORDERED: ASPIRIN 325 MG TABLET PO STA (10:15)
[2019-12-04 10:29] LABS: Basophils % 0.4 % (0.0-0.8); Eosinophils # 0.2 10*3/uL (0.0-0.87); Eosinophils % 2.1 % (0.00-10.9); Hematocrit 22.9 VOL% (42.0-52.0); Immature Granulocytes % 0.5 %; Immature Granulocytes Absolute 0.04 #; Lymphocytes # 2.4 10*3/uL (1.4-4.0); Lymphocytes % 27.6 % (21.2-54.2); Mean Corpuscular HGB Conc 29.3 GM/DL (32-36); Mean Platelet Volume 8.6 FL (9.6-12.0); Monocytes % 9.2 % (1.7-12.7); Neutrophils % 60.2 % (38.7-73.9); Platelet Count 314 T/CUMM (130-400); Red Blood Count 2.36 MC/CUMM (3.8-5.5); Red Cell Distribution Width 15.3 % (9.3-17.3); White Blood Count 8.6 T/CUMM (4-12)
[2019-12-04 10:36] LABS: Hemoglobin 6.7 GM/DL (14.0-18.0)
[2019-12-04] MEDS ORDERED: PANTOPRAZOLE 40 MG VIAL IV STA (10:50)
[2019-12-04 11:47] LABS: Alanine Aminotransferase 19 U/L (16-61); Albumin 2.9 G/DL (3.4-5.0); Alkaline Phosphatase 71 U/L (45-117); Aspartate Amino Transferase 13 U/L (0-37); Bilirubin,Total < 0.39 MG/DL (0.2-1.0); Blood Urea Nitrogen 15 MG/DL (7-18); Calcium 8.4 MG/DL (8.5-10.1); Estimated Glom Filtration Rate 162 ML/MIN; Glucose 163 MG/DL (74-106); Osmolality,Calculated 287.1 MOS/KG (273-304); Total Protein 6.3 G/DL (6.4-8.3)
[2019-12-04] MEDS ORDERED: DEXTROSE 50% 25 GM/50 ML VIAL IV PRN (12:46)
[2019-12-04] MEDS ORDERED: ACETAMINOPHEN 325 MG TABLET PO PRN (12:46)
[2019-12-04] MEDS ORDERED: GLUCAGON 1 MG VIAL IM PRN (12:46)
[2019-12-04] MEDS ORDERED: ONDANSETRON 4 MG/2 ML VIAL IV PRN (12:46)
[2019-12-04] MEDS ORDERED: SODIUM CHLORIDE 0.9% 1,000 ML IV PRN (13:00)
[2019-12-04 13:24] LABS: % Iron Saturation 5.6 % (18-50); Ferritin 16.3 ng/ml (26-388)
[2019-12-04 13:36] LABS: Folate > 24.0 NG/ML (5.4-24.0); Vitamin B12 314 PG/ML (211-911)
[2019-12-04] MEDS ORDERED: PNEUMOCOCCAL VACCINE (13 VALENT) 0.5 ML SYRINGE IM ONE (15:28)
[2019-12-04] MEDS: PANTOPRAZOLE 40 MG TABLET PO SCH (22:53)
[2019-12-04 22:59] LABS: Apearance,Urine CLEAR (Clear); Bilirubin,Urine Negative (Negative); Blood, Urine Negative (Negative); Glucose,Urine (UA) Negative (Negative); Ketones,Urine Negative (Negative); Mucus,Urine Occasional /LPF (Occasional); Nitrite,Urine Negative (Negative); Protein,Urine Negative; RBC,Urine 2 /HPF (0-4); Urine Color Yellow (Yellow); Urine Specific Gravity 1.012 (1.001-1.035); Urine Urobilinogen < 2.0 EU/DL (0.2-1.0); WBC,Urine 2 /HPF (0-6)
[2019-12-05 05:40] LABS: Basophils # 0.1 10*3/uL (0.0-0.2); Basophils % 0.5 % (0.0-0.8); Eosinophils # 0.2 10*3/uL (0.0-0.87); Eosinophils % 2.2 % (0.00-10.9); Hematocrit 28.1 VOL% (42.0-52.0); Hemoglobin 8.4 GM/DL (14.0-18.0); Immature Granulocytes % 0.3 %; Immature Granulocytes Absolute 0.03 #; Lymphocytes # 2.2 10*3/uL (1.4-4.0); Mean Corpuscular HGB Conc 29.9 GM/DL (32-36); Mean Corpuscular Volume 95.9 FL (87-102); Mean Platelet Volume 9.1 FL (9.6-12.0); Monocytes % 8.7 % (1.7-12.7); Neutrophils % 66.3 % (38.7-73.9); Platelet Count 330 T/CUMM (130-400); Red Blood Count 2.93 MC/CUMM (3.8-5.5); Red Cell Distribution Width 15.1 % (9.3-17.3)
[2019-12-05 07:37] LABS: Bilirubin,Total 0.73 MG/DL (0.2-1.0); Calcium 8.8 MG/DL (8.5-10.1); Total Protein 6.9 G/DL (6.4-8.3)
[2019-12-05 07:38] LABS: Risk Ratio 3.59; VLDL CHOLESTEROL 28.2 MG/DL
[2019-12-05] MEDS ORDERED: propofoL 200 MG/20 ML VIAL IV ONE (09:00)
[2019-12-05] MEDS ORDERED: LIDOCAINE 2% 5 ML VIAL ONE (09:00)
[2019-12-05] MEDS ORDERED: LACTATED RINGERS 1,000 ML IV SCH (10:00)
[2019-12-05] MEDS: PANTOPRAZOLE 40 MG TABLET PO SCH ×2 (14:12→20:36)
[2019-12-05] MEDS: POTASSIUM CHLORIDE 20 MEQ TABLET PO PRN ×3 (14:13→18:22)
[2019-12-06 05:47] LABS: Basophils % 0.4 % (0.0-0.8); Eosinophils # 0.2 10*3/uL (0.0-0.87); Eosinophils % 2.2 % (0.00-10.9); Hemoglobin 8.1 GM/DL (14.0-18.0); Immature Granulocytes % 0.3 %; Immature Granulocytes Absolute 0.03 #; Lymphocytes % 22.3 % (21.2-54.2); Mean Corpuscular Volume 95.7 FL (87-102); Mean Platelet Volume 9.4 FL (9.6-12.0); Monocytes % 10.8 % (1.7-12.7); Platelet Count 308 T/CUMM (130-400); Red Blood Count 2.82 MC/CUMM (3.8-5.5); White Blood Count 9.1 T/CUMM (4-12)
[2019-12-06 06:21] LABS: Alanine Aminotransferase 18 U/L (16-61); Albumin 2.8 G/DL (3.4-5.0); Alkaline Phosphatase 71 U/L (45-117); Aspartate Amino Transferase 13 U/L (0-37); Bilirubin,Total < 0.39 MG/DL (0.2-1.0); Blood Urea Nitrogen 10 MG/DL (7-18); Calcium 8.8 MG/DL (8.5-10.1); Estimated Glom Filtration Rate 154 ML/MIN; Glucose 125 MG/DL (74-106); Total Protein 6.5 G/DL (6.4-8.3)
[2019-12-06] MEDS ORDERED: INFLUENZA VIRUS VACCINE 0.5 ML SYRINGE IM ONE (09:16)
[2019-12-06] MEDS: PANTOPRAZOLE 40 MG TABLET PO SCH (09:43)
[2019-12-06 12:07] VITALS: BP 129/75
== END 2019-12-06 14:33 | disposition home or self-care (01) | DRG 813 ==
LOC: N.ED 09:59 → N.EDINP 12:46 → N.5E 14:48
PROVIDERS: ADMIT Family Medicine; ATTEND Family Medicine

== ENCOUNTER 2019-12-19 10:49 | Inpatient (IN) ==
[2019-12-19 12:08] LABS: Basophils % 0.4 % (0.0-0.8); Eosinophils % 0.4 % (0.00-10.9); Hematocrit 28.6 VOL% (42.0-52.0); Hemoglobin 8.2 GM/DL (14.0-18.0); Immature Granulocytes % 0.6 %; Immature Granulocytes Absolute 0.06 #; Lymphocytes # 1.9 10*3/uL (1.4-4.0); Lymphocytes % 19.8 % (21.2-54.2); Mean Corpuscular HGB Conc 28.7 GM/DL (32-36); Mean Platelet Volume 9.6 FL (9.6-12.0); Monocytes % 15.3 % (1.7-12.7); NRBC # 0.09 10*3/uL; Neutrophils % 63.5 % (38.7-73.9); Red Blood Count 3.11 MC/CUMM (3.8-5.5); Red Cell Distribution Width 16.4 % (9.3-17.3); White Blood Count 9.4 T/CUMM (4-12)
[2019-12-19 12:09] LABS: Platelet Count 560 T/CUMM (130-400)
[2019-12-19 12:17] LABS: INR 1.4; PT Patient Result 14.4 SECS (9.8-11.9); Partial Thromboplastin Time 25.7 SECS (23.9-33.8)
[2019-12-19] MEDS ORDERED: LEVOFLOXACIN INJ 750 MG in PREMIX 1 EACH IV STA (12:17)
[2019-12-19 12:23] LABS: Alanine Aminotransferase 23 U/L (16-61); Albumin 3.2 G/DL (3.4-5.0); Alkaline Phosphatase 92 U/L (45-117); Aspartate Amino Transferase 17 U/L (0-37); Bilirubin,Total < 0.39 MG/DL (0.2-1.0); Blood Urea Nitrogen 10 MG/DL (7-18); Eosinophils 3 % (0-10); Estimated Glom Filtration Rate 151 ML/MIN; Glucose 140 MG/DL (74-106); Hypochromasia 2+; Lymphocytes 15 % (20-55); Macrocytosis 1+; Nucleated Red Blood Cells 1 (0-5); Osmolality,Calculated 277.5 MOS/KG (273-304); Polychromasia 1+; Segmented Neutrophils 69 % (50-85); Total Cells Counted 100; Total Protein 7.9 G/DL (6.4-8.3)
[2019-12-19 12:24] LABS: Microcytosis 1+; Platelet Estimate Increased
[2019-12-19] MEDS ORDERED: DEXAMETHASONE INJ 10 MG in SODIUM CHLORIDE 0.9% 50 ML IV SCH (13:00)
[2019-12-19] MEDS ORDERED: GLUCAGON 1 MG VIAL IM PRN (13:07)
[2019-12-19] MEDS ORDERED: guaiFENesin/DM ER 600-30 MG TABLET PO PRN (13:07)
[2019-12-19] MEDS ORDERED: DEXTROSE 50% 25 GM/50 ML VIAL IV PRN ×2 (13:07→15:30)
[2019-12-19] MEDS ORDERED: DEXTROSE 50% 25 GM/50 ML SYRINGE IV PRN (13:07)
[2019-12-19] MEDS ORDERED: ACETAMINOPHEN 325 MG TABLET PO PRN (13:07)
[2019-12-19] MEDS ORDERED: ONDANSETRON 4 MG/2 ML VIAL IV PRN (13:07)
[2019-12-19] MEDS ORDERED: BISACODYL 5 MG TABLET PO PRN (13:07)
[2019-12-19] MEDS ORDERED: DEXAMETHASONE 4 MG/1 ML VIAL IV STA (13:14)
[2019-12-19] MEDS ORDERED: SODIUM CHLORIDE 0.9% 1,000 ML IV SCH (13:30)
[2019-12-19] MEDS ORDERED: traMADol 50 MG TABLET PO PRN (13:43)
[2019-12-19 14:50] LABS: Ferritin 26.6 ng/ml (26-388)
[2019-12-19 16:11] LABS: ABG Base Excess 5.7 MMOL/L (-2.5-2.5); ABG HCO3 35.5 MMOL/L (20-26); ABG PO2 81.6 MM HG (80-95); ABG TCO2 38.4 MMOL/L (23-27); Allen Test Positive
[2019-12-19 16:17] LABS: ABG PH 7.192 (7.35-7.45)
[2019-12-19 16:18] LABS: ABG PCO2 94.7 MM HG (35-48)
[2019-12-19] MEDS ORDERED: INSULIN LISPRO 100 UNIT/ML SUBCUT SCH (16:30)
[2019-12-19] MEDS ORDERED: FUROSEMIDE 40 MG/4 ML VIAL IV ONE (17:45)
[2019-12-19] MEDS: carvediloL 3.125 MG TABLET PO SCH (18:00)
[2019-12-19 18:18] LABS: ABG Base Excess 5.7 MMOL/L (-2.5-2.5); ABG HCO3 29.2 MMOL/L (20-26); ABG Oxygen Saturation 72.7 % (95-100); ABG PO2 50.5 MM HG (80-95); ABG TCO2 34.4 MMOL/L (23-27); Allen Test Positive; Pt O2 Delivery Device BIPAP
[2019-12-19 18:22] LABS: ABG PCO2 89.7 MM HG (35-48)
[2019-12-19 18:28] LABS: Calcium 8.8 MG/DL (8.5-10.1); Osmolality,Calculated 274.8 MOS/KG (273-304)
[2019-12-19 18:45] LABS: Bacteria,Urine Few /HPF (Few); Bilirubin,Urine Negative (Negative); Blood, Urine Negative (Negative); Glucose,Urine (UA) Negative (Negative); Hyaline Casts,Urine 4 /LPF (0-3); Ketones,Urine Negative (Negative); Mucus,Urine Occasional /LPF (Occasional); Nitrite,Urine Negative (Negative); Protein,Urine 100 MG/DL; RBC,Urine 1 /HPF (0-4); Squamous Epithelial Cell,Urine Occasional /HPF (0-10); Urine Appearance CLEAR (Clear); Urine Color Yellow (Yellow); Urine Specific Gravity 1.015 (1.001-1.035); Urine Urobilinogen < 2.0 EU/DL (0.2-1.0); WBC,Urine 3 /HPF (0-6)
[2019-12-19] MEDS ORDERED: ETOMIDATE 20 MG/10 ML VIAL IV ONE ×2 (19:19→19:20)
[2019-12-19] MEDS ORDERED: MIDAZOLAM 2 MG/2 ML VIAL ONE (19:19)
[2019-12-19] MEDS ORDERED: SUCCINYLCHOLINE 200 MG/10 ML VIAL ONE (19:20)
[2019-12-19] MEDS ORDERED: MIDAZOLAM 2 MG/2 ML VIAL IV ONE (19:20)
[2019-12-19] MEDS ORDERED: SUCCINYLCHOLINE 200 MG/10 ML VIAL IV ONE (19:20)
[2019-12-19] MEDS ORDERED: MIDAZOLAM 100 MG in SODIUM CHLORIDE 0.9% 80 ML IV PRN (20:21)
[2019-12-19] MEDS ORDERED: NOREPINEPHRINE 4 MG/4 ML VIAL IV ONE (20:24)
[2019-12-19] MEDS: NOREPINEPHRINE 8 MG in SODIUM CHLORIDE 0.9% 242 ML IV PRN (20:29)
[2019-12-19 20:49] LABS: Calcium 8.7 MG/DL (8.5-10.1); Osmolality,Calculated 280.5 MOS/KG (273-304)
[2019-12-19] MEDS: ATORVASTATIN 40 MG TABLET PO SCH (22:01)
[2019-12-20] MEDS: INSULIN LISPRO 100 UNIT/ML SUBCUT SCH ×4 (01:03→17:36)
[2019-12-20 04:28] LABS: Hematocrit 26.4 VOL% (42.0-52.0); Hemoglobin 7.6 GM/DL (14.0-18.0); Immature Granulocytes % 0.5 %; Immature Granulocytes Absolute 0.04 #; Lymphocytes # 0.7 10*3/uL (1.4-4.0); Lymphocytes % 8.6 % (21.2-54.2); Mean Corpuscular HGB Conc 28.8 GM/DL (32-36); Mean Platelet Volume 9.3 FL (9.6-12.0); Monocytes % 10.3 % (1.7-12.7); NRBC # 0.11 10*3/uL; Neutrophils % 80.6 % (38.7-73.9); Platelet Count 540 T/CUMM (130-400); Red Blood Count 2.87 MC/CUMM (3.8-5.5); Red Cell Distribution Width 16.2 % (9.3-17.3); White Blood Count 7.9 T/CUMM (4-12)
[2019-12-20] MEDS: NOREPINEPHRINE 8 MG in SODIUM CHLORIDE 0.9% 242 ML IV PRN (04:39)
[2019-12-20 04:43] LABS: ABG Base Excess 6.9 MMOL/L (-2.5-2.5); ABG HCO3 31.6 MMOL/L (20-26); ABG Oxygen Saturation 98.3 % (95-100); ABG PCO2 46.9 MM HG (35-48); ABG PH 7.447 (7.35-7.45); ABG PO2 115.5 MM HG (80-95); ABG TCO2 33.1 MMOL/L (23-27); Allen Test Positive; Pt O2 Delivery Device Ventilator
[2019-12-20 04:47] LABS: Calcium 8.8 MG/DL (8.5-10.1); Osmolality,Calculated 287.8 MOS/KG (273-304)
[2019-12-20 04:48] LABS: % Iron Saturation 4.4 % (18-50)
[2019-12-20 05:53] LABS: Band Neutrophils 2 % (0-10); Lymphocytes 9 % (20-55); Nucleated Red Blood Cells 1 (0-5); Platelet Estimate Increased; Segmented Neutrophils 77 % (50-85); Total Cells Counted 100
[2019-12-20] MEDS: RIVAROXABAN 20 MG TABLET PO SCH (08:54)
[2019-12-20] MEDS: carvediloL 3.125 MG TABLET PO SCH (08:55)
[2019-12-20] MEDS ORDERED: amLODIPine 10 MG TABLET PO SCH (09:00)
[2019-12-20] MEDS ORDERED: NON-FORMULARY MEDICATION (Potassium Gluconate 595 mg (99 mg) Tablet) PO SCH (09:00)
[2019-12-20] MEDS ORDERED: FERROUS GLUCONATE PO SCH (09:00)
[2019-12-20] MEDS ORDERED: [UNRECOGNIZED DRUG - MIXTURE] PO SCH (09:00)
[2019-12-20] MEDS: cefTRIAXone 1,000 MG in SYRINGE 1 EACH IV SCH (10:31)
[2019-12-20] MEDS ORDERED: FUROSEMIDE 40 MG/4 ML VIAL IV ONE (10:43)
[2019-12-20] MEDS: LEVOFLOXACIN INJ 750 MG in PREMIX 1 EACH IV SCH (12:29)
[2019-12-20] MEDS: ALBUTEROL 1.25 MG/3 ML NEB RESP TX SCH ×2 (14:00→19:38)
[2019-12-20 16:06] LABS: Alanine Aminotransferase 26 U/L (16-61); Albumin 2.6 G/DL (3.4-5.0); Alkaline Phosphatase 82 U/L (45-117); Aspartate Amino Transferase 12 U/L (0-37); Bilirubin,Total < 0.39 MG/DL (0.2-1.0); Blood Urea Nitrogen 11 MG/DL (7-18); Calcium 8.5 MG/DL (8.5-10.1); Estimated Glom Filtration Rate 155 ML/MIN; Glucose 103 MG/DL (74-106); Osmolality,Calculated 290.4 MOS/KG (273-304); Total Protein 6.5 G/DL (6.4-8.3)
[2019-12-20] MEDS: DEXMEDETOMIDINE 200 MCG in SODIUM CHLORIDE 0.9% 48 ML IV PRN ×2 (16:21→22:07)
[2019-12-20] MEDS: ATORVASTATIN 40 MG TABLET PO SCH (20:45)
[2019-12-20] MEDS: POTASSIUM CHLORIDE 20 MEQ/15 ML UDCUP PER TUBE PRN ×2 (20:45→22:28)
[2019-12-21] MEDS: INSULIN LISPRO 100 UNIT/ML SUBCUT SCH ×4 (00:53→18:39)
[2019-12-21] MEDS: POTASSIUM CHLORIDE 20 MEQ/15 ML UDCUP PER TUBE PRN ×2 (00:58→03:23)
[2019-12-21] MEDS: ALBUTEROL 1.25 MG/3 ML NEB RESP TX SCH ×4 (01:15→19:29)
[2019-12-21 04:48] LABS: ABG HCO3 33.8 MMOL/L (20-26); ABG PCO2 42.1 MM HG (35-48); ABG PH 7.523 (7.35-7.45); ABG PO2 154.1 MM HG (80-95); ABG TCO2 35.1 MMOL/L (23-27)
[2019-12-21 04:49] LABS: Allen Test Positive; Pt O2 Delivery Device Ventilator
[2019-12-21 04:56] LABS: ABG Oxygen Saturation 99.2 % (95-100)
[2019-12-21 05:12] LABS: Basophils % 0.2 % (0.0-0.8); Eosinophils % 0.3 % (0.00-10.9); Hematocrit 26.1 VOL% (42.0-52.0); Hemoglobin 7.6 GM/DL (14.0-18.0); Immature Granulocytes % 0.6 %; Immature Granulocytes Absolute 0.06 #; Lymphocytes # 1.9 10*3/uL (1.4-4.0); Lymphocytes % 19.9 % (21.2-54.2); Mean Corpuscular HGB Conc 29.1 GM/DL (32-36); Mean Corpuscular Volume 91.9 FL (87-102); Mean Platelet Volume 9.2 FL (9.6-12.0); Monocytes % 12.8 % (1.7-12.7); NRBC # 0.14 10*3/uL; Neutrophils % 66.2 % (38.7-73.9); Platelet Count 476 T/CUMM (130-400); Red Blood Count 2.84 MC/CUMM (3.8-5.5); Red Cell Distribution Width 16.4 % (9.3-17.3); White Blood Count 9.4 T/CUMM (4-12)
[2019-12-21 05:35] LABS: Calcium 8.9 MG/DL (8.5-10.1); Osmolality,Calculated 293.6 MOS/KG (273-304)
[2019-12-21] MEDS: LEVOFLOXACIN INJ 750 MG in PREMIX 1 EACH IV SCH (10:25)
[2019-12-21] MEDS: RIVAROXABAN 20 MG TABLET PO SCH (10:25)
[2019-12-21] MEDS ORDERED: SODIUM CHLORIDE 0.9% 1,000 ML IV PRN (10:39)
[2019-12-21 11:59] LABS: Anisocytosis 4+; Band Neutrophils 1 % (0-10); Hypochromasia 3+; Lymphocytes 20 % (20-55); Metamyelocytes 1 %; Myelocytes 1 %; Ovalocytes Few; Poikilocytosis 3+; Polychromasia Slight; Segmented Neutrophils 69 % (50-85); Total Cells Counted 100
[2019-12-21 12:00] LABS: Platelet Estimate Increased
[2019-12-21] MEDS: cefTRIAXone 1,000 MG in SYRINGE 1 EACH IV SCH (12:11)
[2019-12-21] MEDS: ATORVASTATIN 40 MG TABLET PO SCH (20:30)
[2019-12-22] MEDS: ALBUTEROL 1.25 MG/3 ML NEB RESP TX SCH ×4 (00:29→20:25)
[2019-12-22] MEDS: NOREPINEPHRINE 8 MG in SODIUM CHLORIDE 0.9% 242 ML IV PRN (02:25)
[2019-12-22 04:56] LABS: ABG Base Excess 9.4 MMOL/L (-2.5-2.5); ABG Oxygen Saturation 92.9 % (95-100); ABG PH 7.376 (7.35-7.45); ABG PO2 70.7 MM HG (80-95); ABG TCO2 33.8 MMOL/L (23-27)
[2019-12-22 04:57] LABS: Allen Test Positive
[2019-12-22] MEDS: INSULIN LISPRO 100 UNIT/ML SUBCUT SCH ×4 (05:34→17:48)
[2019-12-22] MEDS: LEVOFLOXACIN INJ 750 MG in PREMIX 1 EACH IV SCH (08:02)
[2019-12-22] MEDS: RIVAROXABAN 20 MG TABLET PO SCH (08:02)
[2019-12-22 09:23] LABS: Calcium 8.9 MG/DL (8.5-10.1); Osmolality,Calculated 294.4 MOS/KG (273-304)
[2019-12-22 09:26] LABS: Basophils % 0.4 % (0.0-0.8); Eosinophils # 0.2 10*3/uL (0.0-0.87); Eosinophils % 1.9 % (0.00-10.9); Hematocrit 30.8 VOL% (42.0-52.0); Hemoglobin 8.6 GM/DL (14.0-18.0); Immature Granulocytes % 0.2 %; Immature Granulocytes Absolute 0.02 #; Lymphocytes # 1.7 10*3/uL (1.4-4.0); Lymphocytes % 18.3 % (21.2-54.2); Mean Corpuscular HGB Conc 27.9 GM/DL (32-36); Mean Corpuscular Volume 92.2 FL (87-102); Mean Platelet Volume 9.4 FL (9.6-12.0); Monocytes % 10.7 % (1.7-12.7); Neutrophils % 68.5 % (38.7-73.9); Platelet Count 483 T/CUMM (130-400); Red Blood Count 3.34 MC/CUMM (3.8-5.5); Red Cell Distribution Width 17.2 % (9.3-17.3); White Blood Count 9.3 T/CUMM (4-12)
[2019-12-22 09:55] LABS: Hypochromasia 1+; Microcytosis 1+; Platelet Estimate Adequate
[2019-12-22] MEDS: cefTRIAXone 1,000 MG in SYRINGE 1 EACH IV SCH (10:18)
[2019-12-22] MEDS: ATORVASTATIN 40 MG TABLET PO SCH (21:58)
[2019-12-23] MEDS: ALBUTEROL 1.25 MG/3 ML NEB RESP TX SCH ×4 (00:51→20:36)
[2019-12-23] MEDS: INSULIN LISPRO 100 UNIT/ML SUBCUT SCH ×4 (01:35→18:51)
[2019-12-23 03:53] LABS: ABG Base Excess 8.2 MMOL/L (-2.5-2.5); ABG HCO3 33.4 MMOL/L (20-26); ABG Oxygen Saturation 83.4 % (95-100); ABG PCO2 50.7 MM HG (35-48); ABG PH 7.437 (7.35-7.45); ABG PO2 50.1 MM HG (80-95); Allen Test Positive; Pt O2 Delivery Device BIPAP
[2019-12-23 06:17] LABS: Basophils % 0.3 % (0.0-0.8); Eosinophils # 0.2 10*3/uL (0.0-0.87); Eosinophils % 2.6 % (0.00-10.9); Hematocrit 30.2 VOL% (42.0-52.0); Hemoglobin 8.9 GM/DL (14.0-18.0); Immature Granulocytes % 0.3 %; Immature Granulocytes Absolute 0.03 #; Lymphocytes # 1.7 10*3/uL (1.4-4.0); Lymphocytes % 18.3 % (21.2-54.2); Mean Corpuscular HGB Conc 29.5 GM/DL (32-36); Mean Corpuscular Volume 90.7 FL (87-102); Mean Platelet Volume 9.2 FL (9.6-12.0); NRBC # 0.02 10*3/uL; Neutrophils % 66.5 % (38.7-73.9); Platelet Count 455 T/CUMM (130-400); Red Blood Count 3.33 MC/CUMM (3.8-5.5); Red Cell Distribution Width 16.9 % (9.3-17.3); White Blood Count 9.4 T/CUMM (4-12)
[2019-12-23 06:24] LABS: Hypochromasia 2+; Microcytosis 1+; Ovalocytes Slight; Platelet Estimate Adequate
[2019-12-23] MEDS: LEVOFLOXACIN INJ 750 MG in PREMIX 1 EACH IV SCH (09:05)
[2019-12-23] MEDS: FUROSEMIDE 40 MG TABLET PO SCH (09:05)
[2019-12-23] MEDS: cefTRIAXone 1,000 MG in SYRINGE 1 EACH IV SCH (10:51)
[2019-12-23] MEDS: RIVAROXABAN 20 MG TABLET PO SCH (12:08)
[2019-12-23] MEDS: ATORVASTATIN 40 MG TABLET PO SCH (22:43)
[2019-12-24] MEDS: ALBUTEROL 1.25 MG/3 ML NEB RESP TX SCH ×4 (01:21→20:10)
[2019-12-24] MEDS: INSULIN LISPRO 100 UNIT/ML SUBCUT SCH ×4 (01:45→18:23)
[2019-12-24 06:41] LABS: Calcium 8.9 MG/DL (8.5-10.1); Osmolality,Calculated 282.1 MOS/KG (273-304)
[2019-12-24 07:27] LABS: Basophils % 0.4 % (0.0-0.8); Eosinophils # 0.3 10*3/uL (0.0-0.87); Eosinophils % 3.8 % (0.00-10.9); Hematocrit 30.8 VOL% (42.0-52.0); Immature Granulocytes % 0.6 %; Immature Granulocytes Absolute 0.05 #; Lymphocytes # 1.5 10*3/uL (1.4-4.0); Mean Corpuscular HGB Conc 29.2 GM/DL (32-36); Mean Corpuscular Volume 90.6 FL (87-102); Mean Platelet Volume 9.4 FL (9.6-12.0); Monocytes % 13.3 % (1.7-12.7); Neutrophils % 63.9 % (38.7-73.9); Platelet Count 425 T/CUMM (130-400); Red Cell Distribution Width 16.4 % (9.3-17.3); White Blood Count 8.4 T/CUMM (4-12)
[2019-12-24 07:29] LABS: Hypochromasia 1+; Microcytosis 1+; Ovalocytes Slight; Platelet Estimate Adequate
[2019-12-24] MEDS: LEVOFLOXACIN INJ 750 MG in PREMIX 1 EACH IV SCH (08:20)
[2019-12-24] MEDS: FUROSEMIDE 40 MG TABLET PO SCH (08:21)
[2019-12-24] MEDS: THEOPHYLLINE ER (24 HR) 400 MG CAPSULE PO SCH (08:21)
[2019-12-24] MEDS: POTASSIUM CHLORIDE 20 MEQ TABLET PO PRN ×3 (11:09→16:54)
[2019-12-24] MEDS: DOCUSATE SODIUM 100 MG CAPSULE PO SCH ×2 (11:09→21:15)
[2019-12-24] MEDS: cefTRIAXone 1,000 MG in SYRINGE 1 EACH IV SCH (11:10)
[2019-12-24] MEDS: POLYETHYLENE GLYCOL POWDER 17 GM PACK PO SCH (14:15)
[2019-12-24] MEDS: ATORVASTATIN 40 MG TABLET PO SCH (21:15)
[2019-12-25] MEDS: INSULIN LISPRO 100 UNIT/ML SUBCUT SCH ×4 (00:15→17:37)
[2019-12-25] MEDS: ALBUTEROL 1.25 MG/3 ML NEB RESP TX SCH ×4 (01:46→19:24)
[2019-12-25 06:13] LABS: Calcium 8.8 MG/DL (8.5-10.1); Osmolality,Calculated 282.1 MOS/KG (273-304)
[2019-12-25 08:30] LABS: Hematocrit 29.5 VOL% (42.0-52.0); Hemoglobin 8.5 GM/DL (14.0-18.0)
[2019-12-25] MEDS: THEOPHYLLINE ER (24 HR) 400 MG CAPSULE PO SCH (09:24)
[2019-12-25] MEDS: FUROSEMIDE 40 MG TABLET PO SCH (09:25)
[2019-12-25] MEDS: DOCUSATE SODIUM 100 MG CAPSULE PO SCH ×2 (09:25→21:22)
[2019-12-25] MEDS: carvediloL 3.125 MG TABLET PO SCH ×2 (09:25→17:35)
[2019-12-25] MEDS: POLYETHYLENE GLYCOL POWDER 17 GM PACK PO SCH (09:26)
[2019-12-25] MEDS: LEVOFLOXACIN INJ 750 MG in PREMIX 1 EACH IV SCH (09:26)
[2019-12-25] MEDS: cefTRIAXone 1,000 MG in SYRINGE 1 EACH IV SCH (10:38)
[2019-12-25] MEDS ORDERED: BISACODYL 5 MG TABLET PO ONE (14:00)
[2019-12-25] MEDS ORDERED: POLYETHYLENE GLYCOL POWDER 255 GM BOTTLE PO ONE (15:00)
[2019-12-25] MEDS: ATORVASTATIN 40 MG TABLET PO SCH (21:22)
[2019-12-26] MEDS: ALBUTEROL 1.25 MG/3 ML NEB RESP TX SCH ×4 (00:55→19:53)
[2019-12-26] MEDS: INSULIN LISPRO 100 UNIT/ML SUBCUT SCH ×4 (00:57→21:09)
[2019-12-26 05:47] LABS: INR 1.2; PT Patient Result 12.9 SECS (9.8-11.9)
[2019-12-26 06:00] LABS: Osmolality,Calculated 278.3 MOS/KG (273-304)
[2019-12-26] MEDS ORDERED: MAGNESIUM CITRATE 300 ML BOTTLE PO ONE (06:00)
[2019-12-26 07:42] LABS: Basophils # 0.1 10*3/uL (0.0-0.2); Basophils % 0.7 % (0.0-0.8); Eosinophils # 0.2 10*3/uL (0.0-0.87); Eosinophils % 2.5 % (0.00-10.9); Hematocrit 30.5 VOL% (42.0-52.0); Hemoglobin 8.8 GM/DL (14.0-18.0); Immature Granulocytes % 0.2 %; Immature Granulocytes Absolute 0.02 #; Lymphocytes # 1.7 10*3/uL (1.4-4.0); Lymphocytes % 18.3 % (21.2-54.2); Mean Corpuscular HGB Conc 28.9 GM/DL (32-36); Mean Corpuscular Volume 89.4 FL (87-102); Mean Platelet Volume 9.4 FL (9.6-12.0); Monocytes % 14.6 % (1.7-12.7); Neutrophils % 63.7 % (38.7-73.9); Platelet Count 402 T/CUMM (130-400); Red Blood Count 3.41 MC/CUMM (3.8-5.5); Red Cell Distribution Width 16.3 % (9.3-17.3); White Blood Count 9.1 T/CUMM (4-12)
[2019-12-26 07:44] LABS: Hypochromasia 1+; Microcytosis 1+; Ovalocytes Slight; Platelet Estimate Increased; Spherocytes Slight
[2019-12-26] MEDS ORDERED: LIDOCAINE 2% 5 ML VIAL ONE (09:00)
[2019-12-26] MEDS ORDERED: ETOMIDATE 20 MG/10 ML VIAL IV ONE (09:00)
[2019-12-26] MEDS ORDERED: propofoL 200 MG/20 ML VIAL IV ONE (09:00)
[2019-12-26] MEDS: LEVOFLOXACIN INJ 750 MG in PREMIX 1 EACH IV SCH (09:40)
[2019-12-26] MEDS: LACTATED RINGERS 1,000 ML IV SCH (12:53)
[2019-12-26] MEDS: carvediloL 3.125 MG TABLET PO SCH ×3 (16:45→17:00)
[2019-12-26] MEDS: THEOPHYLLINE ER (24 HR) 400 MG CAPSULE PO SCH (16:45)
[2019-12-26] MEDS: FUROSEMIDE 40 MG TABLET PO SCH (16:45)
[2019-12-26] MEDS: POLYETHYLENE GLYCOL POWDER 17 GM PACK PO SCH (16:46)
[2019-12-26] MEDS: DOCUSATE SODIUM 100 MG CAPSULE PO SCH ×3 (16:46→23:13)
[2019-12-26] MEDS: cefTRIAXone 1,000 MG in SYRINGE 1 EACH IV SCH (16:46)
[2019-12-26] MEDS: ATORVASTATIN 40 MG TABLET PO SCH (23:11)
[2019-12-27] MEDS: INSULIN LISPRO 100 UNIT/ML SUBCUT SCH ×3 (00:30→12:14)
[2019-12-27 06:35] LABS: Calcium 8.9 MG/DL (8.5-10.1); Osmolality,Calculated 279.3 MOS/KG (273-304)
[2019-12-27 06:36] LABS: Basophils # 0.1 10*3/uL (0.0-0.2); Basophils % 0.6 % (0.0-0.8); Eosinophils # 0.2 10*3/uL (0.0-0.87); Eosinophils % 1.8 % (0.00-10.9); Hematocrit 32.2 VOL% (42.0-52.0); Immature Granulocytes % 0.5 %; Immature Granulocytes Absolute 0.04 #; Lymphocytes # 1.6 10*3/uL (1.4-4.0); Lymphocytes % 18.8 % (21.2-54.2); Mean Corpuscular HGB Conc 28.6 GM/DL (32-36); Mean Corpuscular Volume 89.9 FL (87-102); Mean Platelet Volume 9.6 FL (9.6-12.0); Monocytes % 15.2 % (1.7-12.7); Neutrophils % 63.1 % (38.7-73.9); Platelet Count 423 T/CUMM (130-400); Red Blood Count 3.58 MC/CUMM (3.8-5.5); Red Cell Distribution Width 16.1 % (9.3-17.3); White Blood Count 8.5 T/CUMM (4-12)
[2019-12-27 06:41] LABS: Hemoglobin 9.2 GM/DL (14.0-18.0)
[2019-12-27 07:25] LABS: Hypochromasia 1+; Microcytosis Slight; Platelet Estimate Adequate
[2019-12-27] MEDS: ALBUTEROL 1.25 MG/3 ML NEB RESP TX SCH (08:30)
[2019-12-27] MEDS: LEVOFLOXACIN INJ 750 MG in PREMIX 1 EACH IV SCH (09:25)
[2019-12-27] MEDS: LACTATED RINGERS 1,000 ML IV SCH (09:26)
[2019-12-27] MEDS: THEOPHYLLINE ER (24 HR) 400 MG CAPSULE PO SCH (09:26)
[2019-12-27] MEDS: FUROSEMIDE 40 MG TABLET PO SCH (09:26)
[2019-12-27] MEDS: carvediloL 3.125 MG TABLET PO SCH (09:26)
[2019-12-27] MEDS: POLYETHYLENE GLYCOL POWDER 17 GM PACK PO SCH (09:26)
[2019-12-27] MEDS: DOCUSATE SODIUM 100 MG CAPSULE PO SCH (09:26)
[2019-12-27] MEDS: cefTRIAXone 1,000 MG in SYRINGE 1 EACH IV SCH (11:03)
[2019-12-27 12:23] VITALS: BP 114/68
== END 2019-12-27 17:10 | disposition home or self-care (01) | DRG 208 ==
LOC: N.ED 10:49 → N.EDINP 13:07 → SUATTDRO 13:07 → N.5E 15:21 → N.CC 17:52 → N.TELEN 12-22 15:06
PROVIDERS: ADMIT Family Medicine; ATTEND Internal Medicine
PROC: COLONBX (2019-12-26 09:05)

== ENCOUNTER 2020-02-14 11:08 | Inpatient (IN) ==
[2020-02-14 12:09] LABS: Hemoglobin 8.6 GM/DL (14.0-18.0); Mean Platelet Volume 9.1 FL (9.6-12.0); Monocytes % 12.6 % (1.7-12.7); Red Blood Count 3.53 MC/CUMM (3.8-5.5)
[2020-02-14 12:29] LABS: Basophils # 0.1 10*3/uL (0.0-0.2); Basophils % 0.6 % (0.0-0.8); Eosinophils # 0.2 10*3/uL (0.0-0.87); Eosinophils % 2.5 % (0.00-10.9); Hematocrit 30.8 VOL% (42.0-52.0); Immature Granulocytes % 0.7 %; Immature Granulocytes Absolute 0.06 #; Lymphocytes # 1.5 10*3/uL (1.4-4.0); Lymphocytes % 17.6 % (21.2-54.2); Mean Corpuscular HGB Conc 27.9 GM/DL (32-36); Mean Corpuscular Volume 87.3 FL (87-102); Platelet Count 418 T/CUMM (130-400); White Blood Count 8.7 T/CUMM (4-12)
[2020-02-14 12:41] LABS: Polychromasia Few
[2020-02-14 12:42] LABS: Anisocytosis 1+; Microcytosis 1+
[2020-02-14 12:43] LABS: Albumin 2.6 G/DL (3.4-5.0); Bilirubin,Total 0.4 MG/DL (0.2-1.0); Calcium 9.1 MG/DL (8.5-10.1); Osmolality,Calculated 280.4 MOS/KG (273-304); Total Protein 7.7 G/DL (6.4-8.3)
[2020-02-14 12:43] LABS: Hypochromasia 1+; Macrocytosis 1+; Ovalocytes Few; Platelet Estimate Adequate; Tear Drop Cells Few
[2020-02-14] MEDS ORDERED: PIPERACILLIN/TAZOBACTAM 3,375 MG in SODIUM CHLORIDE 0.9% 100 ML IV STA ×2 (12:44→12:51)
[2020-02-14] MEDS ORDERED: GLUCAGON 1 MG VIAL IM PRN (13:47)
[2020-02-14] MEDS ORDERED: ACETAMINOPHEN 325 MG TABLET PO PRN (13:47)
[2020-02-14] MEDS ORDERED: DEXTROSE 50% 25 GM/50 ML VIAL IV PRN (13:47)
[2020-02-14] MEDS ORDERED: ONDANSETRON 4 MG/2 ML VIAL IV PRN (13:47)
[2020-02-14] MEDS ORDERED: FUROSEMIDE 40 MG/4 ML VIAL IV STA (13:53)
[2020-02-14 16:47] LABS: Bilirubin,Urine Negative (Negative); Blood, Urine Negative (Negative); Glucose,Urine (UA) Negative (Negative); Hyaline Casts,Urine 1 /LPF (0-3); Ketones,Urine Negative (Negative); Mucus,Urine Occasional /LPF (Occasional); Nitrite,Urine Negative (Negative); Protein,Urine Negative; RBC,Urine 2 /HPF (0-4); Squamous Epithelial Cell,Urine Occasional /HPF (0-10); Urine Appearance CLEAR (Clear); Urine Color Colorless (Yellow); Urine Specific Gravity 1.005 (1.001-1.035); Urine Urobilinogen < 2.0 EU/DL (0.2-1.0); WBC,Urine 2 /HPF (0-6)
[2020-02-15 06:11] LABS: Calcium 8.7 MG/DL (8.5-10.1); Osmolality,Calculated 279.4 MOS/KG (273-304)
[2020-02-15 07:05] LABS: Basophils # 0.1 10*3/uL (0.0-0.2); Basophils % 0.6 % (0.0-0.8); Eosinophils # 0.1 10*3/uL (0.0-0.87); Eosinophils % 1.7 % (0.00-10.9); Hematocrit 29.6 VOL% (42.0-52.0); Immature Granulocytes % 0.4 %; Immature Granulocytes Absolute 0.03 #; Lymphocytes # 1.1 10*3/uL (1.4-4.0); Mean Platelet Volume 9.3 FL (9.6-12.0); Monocytes % 12.2 % (1.7-12.7); Neutrophils % 72.1 % (38.7-73.9); Platelet Count 388 T/CUMM (130-400); Red Blood Count 3.29 MC/CUMM (3.8-5.5); Red Cell Distribution Width 17.9 % (9.3-17.3); White Blood Count 8.2 T/CUMM (4-12)
[2020-02-15 07:35] LABS: Hypochromasia 4+; Microcytosis 1+; Ovalocytes Few; Platelet Estimate Normal; Polychromasia Slight
[2020-02-15] MEDS: FUROSEMIDE 40 MG/4 ML VIAL IV SCH (08:26)
[2020-02-15] MEDS: PANTOPRAZOLE 40 MG TABLET PO SCH (08:26)
[2020-02-15] MEDS: PIPERACILLIN/TAZOBACTAM 3,375 MG in SODIUM CHLORIDE 0.9% 100 ML IV SCH ×2 (08:27→16:50)
[2020-02-15] MEDS ORDERED: traMADol 50 MG TABLET PO PRN (11:03)
[2020-02-15] MEDS: carvediloL 3.125 MG TABLET PO SCH ×2 (16:29→16:30)
[2020-02-15] MEDS: FERROUS GLUCONATE 240 MG TABLET PO SCH (16:50)
[2020-02-15] MEDS: CALCIUM (CARBONATE)/VITAMIN D 600 MG-400 UNIT TABLET PO SCH (16:50)
[2020-02-15] MEDS: POTASSIUM CHLORIDE 20 MEQ TABLET PO SCH (16:50)
[2020-02-15] MEDS: ATORVASTATIN 40 MG TABLET PO SCH (20:58)
[2020-02-16] MEDS: PIPERACILLIN/TAZOBACTAM 3,375 MG in SODIUM CHLORIDE 0.9% 100 ML IV SCH ×3 (01:12→23:50)
[2020-02-16 07:13] LABS: Calcium 9.1 MG/DL (8.5-10.1); Osmolality,Calculated 276.5 MOS/KG (273-304)
[2020-02-16 07:18] LABS: Basophils # 0.1 10*3/uL (0.0-0.2); Basophils % 0.6 % (0.0-0.8); Eosinophils # 0.2 10*3/uL (0.0-0.87); Eosinophils % 1.7 % (0.00-10.9); Hematocrit 32.8 VOL% (42.0-52.0); Immature Granulocytes % 0.3 %; Immature Granulocytes Absolute 0.03 #; Lymphocytes # 1.7 10*3/uL (1.4-4.0); Lymphocytes % 19.8 % (21.2-54.2); Mean Corpuscular HGB Conc 27.1 GM/DL (32-36); Mean Corpuscular Volume 88.6 FL (87-102); Mean Platelet Volume 9.4 FL (9.6-12.0); Monocytes % 13.9 % (1.7-12.7); Neutrophils % 63.7 % (38.7-73.9); Platelet Count 406 T/CUMM (130-400); Red Cell Distribution Width 18.1 % (9.3-17.3); White Blood Count 8.8 T/CUMM (4-12)
[2020-02-16 07:19] LABS: Hemoglobin 8.9 GM/DL (14.0-18.0)
[2020-02-16 07:20] LABS: Hypochromasia 2+; Microcytosis 1+; Platelet Estimate Adequate
[2020-02-16] MEDS ORDERED: POTASSIUM CHLORIDE 20 MEQ TABLET PO ONE (09:00)
[2020-02-16 10:30] LABS: INR 1.4; PT Patient Result 15.2 SECS (9.8-11.9)
[2020-02-16] MEDS: FERROUS GLUCONATE 240 MG TABLET PO SCH (11:25)
[2020-02-16] MEDS: POTASSIUM CHLORIDE 20 MEQ TABLET PO SCH (11:25)
[2020-02-16] MEDS: PANTOPRAZOLE 40 MG TABLET PO SCH (11:25)
[2020-02-16] MEDS: CALCIUM (CARBONATE)/VITAMIN D 600 MG-400 UNIT TABLET PO SCH (11:25)
[2020-02-16] MEDS: FUROSEMIDE 40 MG/4 ML VIAL IV SCH ×2 (11:26→20:25)
[2020-02-16] MEDS: carvediloL 3.125 MG TABLET PO SCH ×2 (11:34→20:25)
[2020-02-16 16:16] LABS: Neutrophils,Peritoneal Fluid 69 %
[2020-02-16 16:17] LABS: RBC,Peritoneal Fluid 702 T/CUMM
[2020-02-16] MEDS: ATORVASTATIN 40 MG TABLET PO SCH (21:00)
[2020-02-17] MEDS: PIPERACILLIN/TAZOBACTAM 3,375 MG in SODIUM CHLORIDE 0.9% 100 ML IV SCH ×3 (07:37→23:06)
[2020-02-17] MEDS: FUROSEMIDE 40 MG/4 ML VIAL IV SCH ×2 (07:38→16:20)
[2020-02-17] MEDS: carvediloL 3.125 MG TABLET PO SCH ×2 (07:39→18:53)
[2020-02-17 08:17] LABS: Basophils # 0.1 10*3/uL (0.0-0.2); Basophils % 0.6 % (0.0-0.8); Eosinophils # 0.2 10*3/uL (0.0-0.87); Eosinophils % 2.7 % (0.00-10.9); Hematocrit 32.3 VOL% (42.0-52.0); Hemoglobin 8.9 GM/DL (14.0-18.0); Immature Granulocytes % 0.3 %; Immature Granulocytes Absolute 0.03 #; Lymphocytes # 1.4 10*3/uL (1.4-4.0); Lymphocytes % 15.3 % (21.2-54.2); Mean Corpuscular HGB Conc 27.6 GM/DL (32-36); Mean Corpuscular Volume 88.5 FL (87-102); Mean Platelet Volume 9.3 FL (9.6-12.0); Monocytes % 12.7 % (1.7-12.7); Neutrophils % 68.4 % (38.7-73.9); Platelet Count 396 T/CUMM (130-400); Red Blood Count 3.65 MC/CUMM (3.8-5.5); Red Cell Distribution Width 17.6 % (9.3-17.3); White Blood Count 8.8 T/CUMM (4-12)
[2020-02-17 08:26] LABS: Osmolality,Calculated 278.4 MOS/KG (273-304)
[2020-02-17 08:39] LABS: Anisocytosis 3+; Basophilic Stippling Slight; Ovalocytes Few; Platelet Estimate Normal; Polychromasia Slight
[2020-02-17 08:40] LABS: Hypochromasia 1+
[2020-02-17] MEDS: FERROUS GLUCONATE 240 MG TABLET PO SCH (08:42)
[2020-02-17] MEDS: PANTOPRAZOLE 40 MG TABLET PO SCH (08:42)
[2020-02-17] MEDS: CALCIUM (CARBONATE)/VITAMIN D 600 MG-400 UNIT TABLET PO SCH (08:42)
[2020-02-17] MEDS: POTASSIUM CHLORIDE 20 MEQ TABLET PO SCH (08:42)
[2020-02-17] MEDS: ATORVASTATIN 40 MG TABLET PO SCH (20:20)
[2020-02-18 06:19] LABS: Calcium 9.1 MG/DL (8.5-10.1); Osmolality,Calculated 278.4 MOS/KG (273-304)
[2020-02-18] MEDS: carvediloL 3.125 MG TABLET PO SCH (08:29)
[2020-02-18] MEDS: CALCIUM (CARBONATE)/VITAMIN D 600 MG-400 UNIT TABLET PO SCH (08:29)
[2020-02-18] MEDS: PANTOPRAZOLE 40 MG TABLET PO SCH (08:29)
[2020-02-18] MEDS: POTASSIUM CHLORIDE 20 MEQ TABLET PO SCH (08:29)
[2020-02-18] MEDS: FERROUS GLUCONATE 240 MG TABLET PO SCH (08:29)
[2020-02-18] MEDS: PIPERACILLIN/TAZOBACTAM 3,375 MG in SODIUM CHLORIDE 0.9% 100 ML IV SCH (08:30)
[2020-02-18] MEDS: FUROSEMIDE 40 MG/4 ML VIAL IV SCH (08:30)
[2020-02-18 15:38] VITALS: BP 98/57
== END 2020-02-18 16:10 | disposition home or self-care (01) | DRG 291 ==
LOC: N.ED 11:08 → N.EDINP 13:42 → SUATTDRO 13:42 → N.3E 14:59
PROVIDERS: ADMIT Internal Medicine; ATTEND Internal Medicine

== ENCOUNTER 2020-04-29 11:38 | Inpatient (IN) ==
[2020-04-29] MEDS ORDERED: DEXTROSE 50% 25 GM/50 ML VIAL IV PRN (13:26)
[2020-04-29] MEDS ORDERED: GLUCAGON 1 MG VIAL IM PRN (13:26)
[2020-04-29 13:30] LABS: Basophils % 0.3 % (0.0-0.8); Eosinophils # 0.1 10*3/uL (0.0-0.87); Eosinophils % 0.5 % (0.00-10.9); Hematocrit 35.9 VOL% (42.0-52.0); Hemoglobin 10.8 GM/DL (14.0-18.0); Immature Granulocytes % 0.3 %; Immature Granulocytes Absolute 0.04 #; Lymphocytes # 1.6 10*3/uL (1.4-4.0); Lymphocytes % 14.2 % (21.2-54.2); Mean Corpuscular HGB Conc 30.1 GM/DL (32-36); Mean Corpuscular Volume 87.3 FL (87-102); Mean Platelet Volume 9.3 FL (9.6-12.0); Monocytes % 10.2 % (1.7-12.7); Neutrophils % 74.5 % (38.7-73.9); Platelet Count 426 T/CUMM (130-400); Red Blood Count 4.11 MC/CUMM (3.8-5.5); Red Cell Distribution Width 15.4 % (9.3-17.3); White Blood Count 11.5 T/CUMM (4-12)
[2020-04-29 13:31] LABS: Albumin 3.3 G/DL (3.4-5.0); Bilirubin,Total 0.6 MG/DL (0.2-1.0); Calcium 9.6 MG/DL (8.5-10.1); Osmolality,Calculated 287.7 MOS/KG (273-304); Total Protein 8.6 G/DL (6.4-8.3)
[2020-04-29] MEDS ORDERED: SODIUM CHLORIDE 0.9% 1,000 ML IV ONE (13:32)
[2020-04-29 13:42] LABS: Hypochromasia 1+
[2020-04-29] MEDS ORDERED: MAGNESIUM SULF RIDER 4 GM in PREMIX 1 EACH IV PRN (13:42)
[2020-04-29] MEDS ORDERED: MAGNESIUM SULF RIDER 2 GM in PREMIX 1 EACH IV PRN (13:42)
[2020-04-29 13:43] LABS: Platelet Estimate Adequate; Polychromasia Few
[2020-04-29] MEDS ORDERED: ALBUTEROL 2.5 MG/3 ML NEB RESP TX PRN (15:00)
[2020-04-29] MEDS: POTASSIUM CHLORIDE RIDER 10 MEQ in PREMIX 1 EACH IV PRN ×5 (15:01→18:32)
[2020-04-29] MEDS: PANTOPRAZOLE 40 MG VIAL IV SCH (15:01)
[2020-04-29] MEDS: SODIUM CHLORIDE 0.9% 1,000 ML IV SCH (15:55)
[2020-04-29] MEDS: INSULIN LISPRO 100 UNIT/ML SUBCUT SCH (17:23)
[2020-04-29] MEDS: ONDANSETRON 4 MG/2 ML VIAL IV PRN (21:00)
[2020-04-30] MEDS: INSULIN LISPRO 100 UNIT/ML SUBCUT SCH ×4 (01:36→18:33)
[2020-04-30 06:08] LABS: Basophils # 0.1 10*3/uL (0.0-0.2); Basophils % 0.5 % (0.0-0.8); Eosinophils # 0.1 10*3/uL (0.0-0.87); Eosinophils % 1.2 % (0.00-10.9); Hematocrit 31.4 VOL% (42.0-52.0); Hemoglobin 9.4 GM/DL (14.0-18.0); Immature Granulocytes % 0.3 %; Immature Granulocytes Absolute 0.03 #; Lymphocytes # 1.5 10*3/uL (1.4-4.0); Mean Corpuscular HGB Conc 29.9 GM/DL (32-36); Mean Corpuscular Volume 87.2 FL (87-102); Mean Platelet Volume 9.2 FL (9.6-12.0); Monocytes % 11.2 % (1.7-12.7); Neutrophils % 70.8 % (38.7-73.9); Platelet Count 369 T/CUMM (130-400); Red Cell Distribution Width 15.4 % (9.3-17.3); White Blood Count 9.6 T/CUMM (4-12)
[2020-04-30 06:17] LABS: Albumin 2.9 G/DL (3.4-5.0); Calcium 8.8 MG/DL (8.5-10.1); Osmolality,Calculated 288.5 MOS/KG (273-304); Potassium 2.8 MMOL/L (3.5-5.1); Total Protein 7.5 G/DL (6.4-8.3)
[2020-04-30] MEDS ORDERED: POTASSIUM CHLORIDE RIDER 20 MEQ in PREMIX 1 EACH IV PRN (07:30)
[2020-04-30] MEDS: SODIUM CHLORIDE 0.9% 1,000 ML IV SCH ×2 (08:05→20:36)
[2020-04-30] MEDS: PANTOPRAZOLE 40 MG VIAL IV SCH (08:54)
[2020-04-30] MEDS: POTASSIUM CHLORIDE RIDER 10 MEQ in PREMIX 1 EACH IV PRN ×3 (10:20→22:37)
[2020-04-30] MEDS: NYSTATIN 500,000 UNIT/5 ML UDCUP SWISH/SWAL SCH ×3 (13:20→20:36)
[2020-04-30] MEDS: ATORVASTATIN 40 MG TABLET PO SCH (20:35)
[2020-04-30] MEDS: HYDROmorphone 2 MG/1 ML VIAL IV PRN (20:42)
[2020-05-01] MEDS: POTASSIUM CHLORIDE RIDER 10 MEQ in PREMIX 1 EACH IV PRN (02:33)
[2020-05-01] MEDS: SODIUM CHLORIDE 0.9% 1,000 ML IV SCH ×2 (02:48→15:48)
[2020-05-01] MEDS: HYDROmorphone 2 MG/1 ML VIAL IV PRN ×3 (04:55→21:20)
[2020-05-01] MEDS: LEVOTHYROXINE 25 MCG TABLET PO SCH (06:04)
[2020-05-01 06:40] LABS: Albumin 3.1 G/DL (3.4-5.0); Bilirubin,Total 0.9 MG/DL (0.2-1.0); Calcium 9.2 MG/DL (8.5-10.1); Osmolality,Calculated 292.3 MOS/KG (273-304); Potassium 3.4 MMOL/L (3.5-5.1); Total Protein 7.6 G/DL (6.4-8.3)
[2020-05-01 06:42] LABS: Basophils % 0.4 % (0.0-0.8); Eosinophils # 0.1 10*3/uL (0.0-0.87); Eosinophils % 0.9 % (0.00-10.9); Hematocrit 32.6 VOL% (42.0-52.0); Immature Granulocytes % 0.4 %; Immature Granulocytes Absolute 0.05 #; Lymphocytes # 1.3 10*3/uL (1.4-4.0); Lymphocytes % 11.7 % (21.2-54.2); Mean Corpuscular HGB Conc 28.5 GM/DL (32-36); Mean Corpuscular Volume 90.8 FL (87-102); Mean Platelet Volume 10.3 FL (9.6-12.0); Monocytes % 12.3 % (1.7-12.7); Neutrophils % 74.3 % (38.7-73.9); Platelet Count 385 T/CUMM (130-400); Red Blood Count 3.59 MC/CUMM (3.8-5.5); Red Cell Distribution Width 15.2 % (9.3-17.3); White Blood Count 11.3 T/CUMM (4-12)
[2020-05-01 06:43] LABS: Hemoglobin 9.3 GM/DL (14.0-18.0)
[2020-05-01] MEDS: INSULIN LISPRO 100 UNIT/ML SUBCUT SCH ×4 (08:02→21:56)
[2020-05-01] MEDS: NYSTATIN 500,000 UNIT/5 ML UDCUP SWISH/SWAL SCH ×4 (09:38→21:56)
[2020-05-01] MEDS: CALCIUM (CARBONATE)/VITAMIN D 600 MG-400 UNIT TABLET PO SCH (13:42)
[2020-05-01] MEDS: FERROUS GLUCONATE 240 MG TABLET PO SCH (13:42)
[2020-05-01] MEDS: PANTOPRAZOLE 40 MG VIAL IV SCH (13:43)
[2020-05-01] MEDS: ATORVASTATIN 40 MG TABLET PO SCH (21:56)
[2020-05-02] MEDS: SODIUM CHLORIDE 0.9% 1,000 ML IV SCH ×2 (03:19→21:12)
[2020-05-02 06:04] LABS: Basophils % 0.3 % (0.0-0.8); Eosinophils # 0.3 10*3/uL (0.0-0.87); Eosinophils % 2.8 % (0.00-10.9); Hematocrit 32.2 VOL% (42.0-52.0); Hemoglobin 9.4 GM/DL (14.0-18.0); Immature Granulocytes % 0.3 %; Immature Granulocytes Absolute 0.03 #; Lymphocytes # 1.3 10*3/uL (1.4-4.0); Lymphocytes % 13.9 % (21.2-54.2); Mean Corpuscular HGB Conc 29.2 GM/DL (32-36); Mean Platelet Volume 9.2 FL (9.6-12.0); Neutrophils % 70.7 % (38.7-73.9); Platelet Count 349 T/CUMM (130-400); Red Blood Count 3.54 MC/CUMM (3.8-5.5); White Blood Count 9.4 T/CUMM (4-12)
[2020-05-02] MEDS: LEVOTHYROXINE 25 MCG TABLET PO SCH (06:07)
[2020-05-02 06:24] LABS: Calcium 9.5 MG/DL (8.5-10.1); Osmolality,Calculated 286.7 MOS/KG (273-304); Potassium 3.4 MMOL/L (3.5-5.1)
[2020-05-02] MEDS: INSULIN LISPRO 100 UNIT/ML SUBCUT SCH ×4 (08:43→21:13)
[2020-05-02] MEDS: HYDROmorphone 2 MG/1 ML VIAL IV PRN ×3 (08:44→20:46)
[2020-05-02] MEDS: PANTOPRAZOLE 40 MG VIAL IV SCH (08:45)
[2020-05-02] MEDS: FERROUS GLUCONATE 240 MG TABLET PO SCH (08:48)
[2020-05-02] MEDS: NYSTATIN 500,000 UNIT/5 ML UDCUP SWISH/SWAL SCH ×4 (08:48→21:13)
[2020-05-02] MEDS: CALCIUM (CARBONATE)/VITAMIN D 600 MG-400 UNIT TABLET PO SCH (08:49)
[2020-05-02] MEDS: ONDANSETRON 4 MG/2 ML VIAL IV PRN (20:46)
[2020-05-02] MEDS: ATORVASTATIN 40 MG TABLET PO SCH (21:13)
[2020-05-03] MEDS: HYDROmorphone 2 MG/1 ML VIAL IV PRN ×3 (03:20→15:52)
[2020-05-03 06:26] LABS: Basophils % 0.4 % (0.0-0.8); Eosinophils # 0.2 10*3/uL (0.0-0.87); Eosinophils % 1.6 % (0.00-10.9); Hematocrit 33.7 VOL% (42.0-52.0); Hemoglobin 9.9 GM/DL (14.0-18.0); Immature Granulocytes % 0.3 %; Immature Granulocytes Absolute 0.03 #; Lymphocytes # 1.6 10*3/uL (1.4-4.0); Lymphocytes % 16.4 % (21.2-54.2); Mean Corpuscular HGB Conc 29.4 GM/DL (32-36); Mean Corpuscular Volume 89.2 FL (87-102); Mean Platelet Volume 9.1 FL (9.6-12.0); Neutrophils % 71.3 % (38.7-73.9); Platelet Count 320 T/CUMM (130-400); Red Blood Count 3.78 MC/CUMM (3.8-5.5); Red Cell Distribution Width 15.2 % (9.3-17.3); White Blood Count 9.8 T/CUMM (4-12)
[2020-05-03] MEDS: LEVOTHYROXINE 25 MCG TABLET PO SCH (06:28)
[2020-05-03 06:53] LABS: Osmolality,Calculated 289.4 MOS/KG (273-304); Potassium 3.5 MMOL/L (3.5-5.1)
[2020-05-03] MEDS: SODIUM CHLORIDE 0.9% 1,000 ML IV SCH ×3 (07:17→09:56)
[2020-05-03] MEDS: INSULIN LISPRO 100 UNIT/ML SUBCUT SCH ×4 (07:26→21:02)
[2020-05-03] MEDS: POTASSIUM CHLORIDE RIDER 10 MEQ in PREMIX 1 EACH IV PRN ×3 (08:07→10:56)
[2020-05-03] MEDS: PANTOPRAZOLE 40 MG VIAL IV SCH (08:07)
[2020-05-03] MEDS: ONDANSETRON 4 MG/2 ML VIAL IV PRN ×2 (08:08→15:51)
[2020-05-03] MEDS: CALCIUM (CARBONATE)/VITAMIN D 600 MG-400 UNIT TABLET PO SCH (08:12)
[2020-05-03] MEDS: FERROUS GLUCONATE 240 MG TABLET PO SCH (08:12)
[2020-05-03] MEDS: NYSTATIN 500,000 UNIT/5 ML UDCUP SWISH/SWAL SCH ×4 (08:14→21:02)
[2020-05-03] MEDS: LACTATED RINGERS 1,000 ML IV SCH (12:13)
[2020-05-03] MEDS ORDERED: ceFAZolin 1,000 MG in SYRINGE 1 EACH IV ONE (12:14)
[2020-05-03 13:20] LABS: INR 1.2; PT Patient Result 12.8 SECS (9.8-11.9)
[2020-05-03] MEDS ORDERED: fentaNYL 100 MCG/2 ML VIAL ONE (13:23)
[2020-05-03] MEDS ORDERED: SUCCINYLCHOLINE 200 MG/10 ML VIAL ONE (14:06)
[2020-05-03] MEDS ORDERED: ONDANSETRON 4 MG/2 ML VIAL ONE (14:06)
[2020-05-03] MEDS ORDERED: ETOMIDATE 20 MG/10 ML VIAL IV ONE (14:06)
[2020-05-03] MEDS ORDERED: propofoL 200 MG/20 ML VIAL IV ONE (14:06)
[2020-05-03] MEDS ORDERED: LIDOCAINE 2% 5 ML VIAL ONE (14:06)
[2020-05-03] MEDS ORDERED: SEVOFLURANE 1 UNIT/15 MINUTE INH ONE (14:38)
[2020-05-03] MEDS: ATORVASTATIN 40 MG TABLET PO SCH (21:02)
[2020-05-04] MEDS: HYDROmorphone 2 MG/1 ML VIAL IV PRN ×3 (00:09→19:00)
[2020-05-04] MEDS: SODIUM CHLORIDE 0.9% 1,000 ML IV SCH ×3 (00:15→12:56)
[2020-05-04] MEDS: LEVOTHYROXINE 25 MCG TABLET PO SCH (06:06)
[2020-05-04 07:25] LABS: Basophils % 0.3 % (0.0-0.8); Eosinophils # 0.1 10*3/uL (0.0-0.87); Eosinophils % 1.5 % (0.00-10.9); Hematocrit 30.2 VOL% (42.0-52.0); Hemoglobin 9.1 GM/DL (14.0-18.0); Immature Granulocytes % 0.3 %; Immature Granulocytes Absolute 0.03 #; Lymphocytes # 1.2 10*3/uL (1.4-4.0); Lymphocytes % 13.6 % (21.2-54.2); Mean Corpuscular HGB Conc 30.1 GM/DL (32-36); Mean Corpuscular Volume 89.3 FL (87-102); Monocytes % 12.2 % (1.7-12.7); Neutrophils % 72.1 % (38.7-73.9); Platelet Count 248 T/CUMM (130-400); Red Blood Count 3.38 MC/CUMM (3.8-5.5); Red Cell Distribution Width 15.1 % (9.3-17.3); White Blood Count 8.6 T/CUMM (4-12)
[2020-05-04 07:43] LABS: Albumin 2.6 G/DL (3.4-5.0); Calcium 8.8 MG/DL (8.5-10.1); Osmolality,Calculated 284.5 MOS/KG (273-304); Potassium 3.3 MMOL/L (3.5-5.1); Total Protein 7.2 G/DL (6.4-8.3)
[2020-05-04] MEDS: INSULIN LISPRO 100 UNIT/ML SUBCUT SCH ×4 (08:27→22:00)
[2020-05-04] MEDS ORDERED: fentaNYL 25 MCG/HR PATCH TRANSDERM SCH (09:00)
[2020-05-04] MEDS ORDERED: HYDROcod/ACETAMIN 7.5-325 MG/15 ML UDCUP PO PRN (09:10)
[2020-05-04] MEDS: NYSTATIN 500,000 UNIT/5 ML UDCUP SWISH/SWAL SCH ×4 (10:39→22:00)
[2020-05-04] MEDS: PANTOPRAZOLE 40 MG VIAL IV SCH (10:40)
[2020-05-04] MEDS: POTASSIUM CHLORIDE RIDER 10 MEQ in PREMIX 1 EACH IV PRN ×4 (10:45→14:35)
[2020-05-04] MEDS: LACTATED RINGERS 1,000 ML IV SCH (11:48)
[2020-05-04] MEDS: ONDANSETRON 4 MG/2 ML VIAL IV PRN ×2 (13:35→19:01)
[2020-05-04] MEDS: ATORVASTATIN 40 MG TABLET PO SCH (22:00)
[2020-05-05] MEDS: SODIUM CHLORIDE 0.9% 1,000 ML IV SCH (02:11)
[2020-05-05] MEDS: LEVOTHYROXINE 25 MCG TABLET PO SCH (06:13)
[2020-05-05] MEDS: HYDROmorphone 2 MG/1 ML VIAL IV PRN (07:52)
[2020-05-05 08:18] VITALS: BP 112/71
[2020-05-05] MEDS: NYSTATIN 500,000 UNIT/5 ML UDCUP SWISH/SWAL SCH (09:09)
[2020-05-05] MEDS: PANTOPRAZOLE 40 MG VIAL IV SCH (09:10)
[2020-05-05] MEDS: INSULIN LISPRO 100 UNIT/ML SUBCUT SCH (09:14)
== END 2020-05-05 13:45 | disposition home or self-care (01) | DRG 375 ==
LOC: N.TELES → SUATTDRO 15:11
PROVIDERS: ADMIT Internal Medicine; ATTEND Internal Medicine
PROC: EGDWPEG (ICD-10-PCS; 2020-05-03 12:35)